=== PATIENT | male | born 1955 | race Caucasian/White ===

== ENCOUNTER → 2017-09-01 | Outpatient (CLI) | payer OTHER, MEDICAID | LOC: FIMAGING 07:44 | PROVIDERS: ATTEND Orthopaedic Surgery | DX: M51.36 Other intervertebral disc degeneration, lumbar region (principal); M51.37 Other intervertebral disc degeneration, lumbosacral region; M46.97 Unspecified inflammatory spondylopathy, lumbosacral region; M46.96 Unspecified inflammatory spondylopathy, lumbar region; M48.07 Spinal stenosis, lumbosacral region; M48.062 Spinal stenosis, lumbar region with neurogenic claudication ==

== ENCOUNTER 2018-06-14 11:38 | Inpatient (IN) | payer MEDICAID, OTHER ==
--- NOTE | 2018-06-14 12:02 | EDPHY ---
H & P Stated Complaint: cp hx afib and pe Time Seen by Provider: 06/14/18 11:55 HPI/ROS: CHIEF COMPLAINT: Chest pain HISTORY OF PRESENT ILLNESS: 62-year-old male with recurrent pulmonary embolism and atrial fibrillation presents with left-sided chest pain. Onset of sharp and stabbing left chest pain yesterday. The pain is moderate to severe and increases with deep inspiration, movement and talking. Associated with a 3-4 day history of a moist cough. Similar to prior episodes of pulmonary embolism. Currently on Xarelto. No shortness of breath or fever. REVIEW OF SYSTEMS: complete 10 point ROS reviewed and is negative except for the noted elements in the HPI - Personal History Current Tetanus Diphtheria and Acellular Pertussis (TDAP): Yes Tetanus Vaccine Date: last 2 years - Medical/Surgical History Hx Asthma: No Hx Chronic Respiratory Disease: Yes Hx Diabetes: No Hx Cardiac Disease: Yes Hx Renal Disease: No Hx Cirrhosis: No Hx Alcoholism: Yes Hx HIV/AIDS: No Hx Splenectomy or Spleen Trauma: No Other PMH: pmh- Alcoholism- sober since 01/2015, 4 PE, Antithrombin III deficiency, COPD, AFib, multiple falls. Surgical Hx: Ortho shoulder, compartment syndrome right leg, torn tendon on left foot, right knee hematoma r/ t fall, appendectomy, cholesytectomy. - Social History Smoking Status: Current every day smoker Alcohol Use: Sober Drug Use: None - Physical Exam Exam: General Appearance: Alert, pleasant, nontoxic-appearing Eyes: Pupils equal and round, no conjunctival pallor or injection ENT, Mouth: Mucous membranes moist Neck: Normal inspection Respiratory: Diffuse expiratory wheezing Cardiovascular: Regular tachycardia Gastrointestinal: Abdomen is soft and nontender Neurological: A&O, nonfocal exam Skin: Warm and dry, no rash Extremities: Nontender, bilateral pedal edema Psychiatric: Mood and affect normal Constitutional: Initial Vital Signs Temperature (C) 37.1 C 06/14/18 11:42 Heart Rate 115 H 06/14/18 11:42 Respiratory Rate 20 06/14/18 11:42 Blood Pressure 144/78 H 06/14/18 11:42 O2 Sat (%) 92 06/14/18 11:42 O2 Delivery Mode Nasal Cannula O2 (L/minute) 2 Allergies/Adverse Reactions: METAL Allergy (Intermediate, Uncoded 06/14/18 11:40) Home Medications: Medication Instructions Recorded Albuterol [Proventil Inhaler HFA 1 - 2 puffs IH Q4H PRN 06/14/18 (*)] C,E,Zinc,Copper 11/Gpetz7r/Lut 1 each PO DAILY 06/14/18 [Ocuvite Adult 50 Plus Softgel] Gabapentin [Neurontin 300 MG (*)] 900 mg PO TID 06/14/18 Ipratropium/Albuterol [Combivent 1 inh IH QID 06/14/18 Respimat Inhal [place](*)] Multivitamins [Multivitamin (*)] 1 each PO DAILY 06/14/18 Rivaroxaban [Xarelto] 20 mg PO DAILY 06/14/18 Medical Decision Making - Diagnostics EKG Interpretation: EKG interpreted by me reveals sinus tachycardia, rate 101, inferior Q-waves, consistent with prior inferior infarct. Imaging Results: Imaging Impressions Chest X-Ray 06/14/18 11:59 Impression: Nothing acute identified. Chest/Thorax CTA 06/14/18 12:08 Impression: 1. Bilateral pulmonary emboli, including emboli involving the distal left main pulmonary artery, with equivocal evidence of right heart strain. 2. Left upper lobe opacity suggesting infarct. 3. Additional findings as above. Findings discussed with Mulu Castellanos on 06/14/2018 at 1430 hours. Imaging: Discussed imaging studies w/ manager call center Radiologist, I viewed and interpreted images myself ED Course/Re-evaluation: This patient presents with left-sided pleuritic chest pain, history of coagulopathy, now on Xarelto. Patient is fairly certain that this is a pulmonary embolism. Clnical likelihood is high, given h/o recurrent PE, tachycardia and typical cp. CT pulmonary angiogram ordered. He also has bronchospasm secondary to COPD. A DuoNeb and Solu-Medrol 125 mg IV given. Morphine 4 mg IV given for pain control. Feels better after duoneb, lungs CTA. Pain lessened and pt comfortable after IV Morphine. CT scan results discussed with the patient. Extensive pulmonary embolism present. Remains clinically stable with a normal blood pressure. No indication for TPA. Heparin per weight based protocol initiated. The hospitalist service was consulted for admission. Differential Diagnosis: Differential diagnosis includes though it is not limited to pneumonia, pneumothorax, pulmonary embolism, aortic dissection, pericarditis, acute coronary syndrome. - Data Points Laboratory Results: Laboratory Results 06/14/18 11:56 06/14/18 11:56 06/14/18 06/14/18 06/14/18 11:59 11:56 11:56 WBC RBC Hgb Hct MCV MCH MCHC RDW Plt Count MPV Neut % (Auto) Lymph % (Auto) [place] % (Auto) Eos % (Auto) Baso % (Auto) Nucleat RBC Rel Count Absolute Neuts (auto) Absolute Lymphs (auto) Absolute Monos (auto) Absolute Eos (auto) Absolute Basos (auto) Absolute Nucleated RBC Immature Gran % Immature Gran # D-Dimer 3.28 ug/mLFEU H ug/mLFEU (0.00-0.50) Sodium 140 mEq/L mEq/L (135-145) Potassium 3.8 mEq/L mEq/L (3.3-5.0) Chloride 99 mEq/L mEq/L (97-110) Carbon Dioxide 32 mEq/l H mEq/l (22-31) Anion Gap 9 mEq/L mEq/L (6-14) BUN 12 mg/dL mg/dL (7-23) Creatinine 0.9 mg/dL mg/dL (0.7-1.3) Estimated GFR > 60 Glucose 88 mg/dL mg/dL (70-100) Calcium 9.5 mg/dL mg/dL (8.5-10.4) POC Troponin I 0.00 ng/mL ng/mL (0.00-0.08) NT-Pro-B Natriuret Pep 109 pg/mL pg/mL (0-125) 06/14/18 11:56 WBC 6.45 10^3/uL 10^3/uL (3.80-9.50) RBC 4.56 10^6/uL 10^6/uL (4.40-6.38) Hgb 15.6 g/dL g/dL (13.7-17.5) Hct 47.3 % % (40.0-51.0) MCV 103.7 fL H fL (81.5-99.8) MCH 34.2 pg H pg (27.9-34.1) MCHC 33.0 g/dL g/dL (32.4-36.7) RDW 14.8 % % (11.5-15.2) Plt Count 215 10^3/uL 10^3/uL (150-400) MPV 9.1 fL fL (8.7-11.7) Neut % (Auto) 69.6 % % (39.3-74.2) Lymph % (Auto) 15.5 % % (15.0-45.0) [place] % (Auto) 13.3 % H % (4.5-13.0) Eos % (Auto) 0.2 % L % (0.6-7.6) Baso % (Auto) 1.1 % % (0.3-1.7) Nucleat RBC Rel Count 0.0 % % (0.0-0.2) Absolute Neuts (auto) 4.49 10^3/uL 10^3/uL (1.70-6.50) Absolute Lymphs (auto) 1.00 10^3/uL 10^3/uL (1.00-3.00) Absolute Monos (auto) 0.86 10^3/uL H 10^3/uL (0.30-0.80) Absolute Eos (auto) 0.01 10^3/uL L 10^3/uL (0.03-0.40) Absolute Basos (auto) 0.07 10^3/uL 10^3/uL (0.02-0.10) Absolute Nucleated RBC 0.00 10^3/uL 10^3/uL (0-0.01) Immature Gran % 0.3 % % (0.0-1.1) Immature Gran # 0.02 10^3/uL 10^3/uL (0.00-0.10) D-Dimer Sodium Potassium Chloride Carbon Dioxide Anion Gap BUN Creatinine Estimated GFR Glucose Calcium POC Troponin I NT-Pro-B Natriuret Pep Medications Given: Hydrocodone Bitart/Acetaminophen ([place] 5/325) 1 - 2 tab PO Q4HRS PRN PRN Reason: Pain, Moderate Able to Take PO Stop: 06/24/18 15:32 Last Admin: 06/14/18 17:49 Dose: 1 tab Albuterol/Ipratropium (Combivent Respimat Inhal [place]) 1 inh IH QID [facility] Stop: 12/11/18 15:59 Last Admin: 06/14/18 20:51 Dose: 1 inh Gabapentin (Neurontin) 900 mg PO TID [facility] Stop: 12/11/18 15:59 Last Admin: 06/14/18 17:30 Dose: 900 mg Discontinued Medications Albuterol/Ipratropium (Duoneb) 3 ml IH EDNOW ONE Stop: 06/14/18 12:16 Last Admin: 06/14/18 12:19 Dose: 3 ml Heparin Sodium (Porcine) (Heparin Injection) 0 unit IVP EDNOW ONE Stop: 06/14/18 14:33 Last Admin: 06/14/18 14:51 Dose: 8,300 units Heparin Sodium (Porcine) (Heparin 50 Units/Ml (Premix)) 500 mls @ 0 mls/hr IV EDNOW ONE; Per Protocol PRN Reason: Protocol Stop: 06/14/18 14:33 Last Admin: 06/14/18 14:53 Dose: 500 mls Methylprednisolone Sodium Succinate (Solu-Medrol) 125 mg IVP EDNOW ONE Stop: 06/14/18 12:16 Last Admin: 06/14/18 12:20 Dose: 125 mg Morphine Sulfate (Morphine) 4 mg IVP EDNOW ONE Stop: 06/14/18 13:54 Last Admin: 06/14/18 13:54 Dose: 4 mg Point of Care Test Results: Chemistry 06/14/18 11:59 POC Troponin I 0.00 ng/mL ng/mL (0.00-0.08) Departure - Departure Disposition: [facility] Inpatient Acute Clinical Impression: Pulmonary embolism Qualifiers: Pulmonary embolism type: other Chronicity: acute Acute cor pulmonale presence: without acute cor pulmonale Qualified Code(s): I26.99 - Other pulmonary embolism without acute cor pulmonale Condition: Serious
[2018-06-14 12:04] LABS: PLATELET COUNT 215 10^3/uL (150-400)
[2018-06-14] MEDS ORDERED: methylPREDNISolone SOD SUCC 125 MG/2 ML VIAL IVP ONE (12:15)
[2018-06-14] MEDS ORDERED: IPRATROPIUM/ALBUTEROL 3 ML DEYVIAL IH ONE (12:15)
[2018-06-14] MEDS ORDERED: IOPAMIDOL (ISOVUE 370) 100 ML BTL IV ONE (13:06)
[2018-06-14] MEDS ORDERED: HEPARIN 10,000 UNIT/10 ML MDV (1,000 UNIT/ML) IVP ONE (14:32)
[2018-06-14] MEDS ORDERED: HEPARIN/DEXTROSE 500 ML IV ONE (14:32)
--- NOTE | 2018-06-14 15:14 | CPEKG ---
Test Reason : OPEN Blood Pressure : / mmHG Vent. Rate : 101 BPM Atrial Rate : 101 BPM P-R Int : 177 ms QRS Dur : 068 ms QT Int : 333 ms P-R-T Axes : 027 -08 020 degrees QTc Int : 432 ms Inferior infarct, old Confirmed by Mulu Castellanos ([id number]) on 06/14/2018 3:14:08 PM Referred By: Confirmed By:Mulu Castellanos
[2018-06-14] MEDS ORDERED: HYDROmorphONE/DILAUDID 1 MG/ML INJ IVP PRN (15:33)
[2018-06-14] MEDS ORDERED: ONDANSETRON DISINTEGRATING 4 MG TAB PO PRN (15:33)
[2018-06-14] MEDS ORDERED: ONDANSETRON 4 MG/2 ML VIAL IVP PRN (15:33)
[2018-06-14] MEDS ORDERED: HEPARIN 10,000 UNIT/10 ML MDV (1,000 UNIT/ML) IVP PRN (15:33)
[2018-06-14] MEDS ORDERED: ALBUTEROL 3 ML DEYVIAL IH PRN (15:33)
[2018-06-14] MEDS ORDERED: ACETAMINOPHEN 325 MG TAB PO PRN (15:33)
[2018-06-14] MEDS ORDERED: LORazepam 0.5 MG TAB PO PRN (15:33)
[2018-06-14] MEDS ORDERED: LORazepam 2 MG/ML INJ IVP PRN (15:33)
[2018-06-14] MEDS ORDERED: PROMETHAZINE HCL 25 MG/ML INJ IVP PRN (15:33)
[2018-06-14] MEDS: IPRATROPIUM/ALBUTEROL 4GM MDI IH SCH ×2 (16:37→20:51)
[2018-06-14 16:46] LABS: PLATELET COUNT 191 10^3/uL (150-400)
--- NOTE | 2018-06-14 16:56 | PDGENHP ---
History and Physical - Chief Complaint chest pain - History of Present Illness 62 yo M with hx of antithrombin 3 deficiency and recurrent DVT/PE and etoh abuse and withdrawal as well as hx of recurrent DVT/PE presenting with chest pain that for him is very similar to prior sxs he has had with PE in the past. He has fairly recently been switched from warfarin to xarelto. He has had clots in the past on both coumadin and xarelto. He denies any non compliance with his medications recently. He states he has cut down on his drinking but states he was drinking a bit more with this pain to help with the pain. He denies having any withdrawal in the recent past and states that he does not drink every day but is somewhat reluctant to answer specific questions about his drinking. History Information - Allergies/Home Medication List Allergies/Adverse Reactions: METAL Allergy (Intermediate, Uncoded 06/14/18 11:40) Home Medications: Albuterol [Proventil Inhaler HFA (*)] 1 - 2 puffs IH Q4H PRN 06/14/18 [Last Taken Unknown] C,E,Zinc,Copper 11/Lmwon4k/Lut [Ocuvite Adult 50 Plus Softgel] 1 each PO DAILY 06/14/18 [Last Taken 06/13/18] Gabapentin [Neurontin 300 MG (*)] 900 mg PO TID 06/14/18 [Last Taken 06/14/18 09 :00] Ipratropium/Albuterol [Combivent Respimat Inhal [place](*)] 1 inh IH QID 06/14/18 [Last Taken 06/13/18] Multivitamins [Multivitamin (*)] 1 each PO DAILY 06/14/18 [Last Taken 06/13/18] Rivaroxaban [Xarelto] 20 mg PO DAILY 06/14/18 [Last Taken 06/13/18] I have personally reviewed and updated: family history, medical history, social history, surgical history - Past Medical History atrial fibrillation, DVT, pulmonary embolism Additional medical history: AT3 deficiency. etoh use disorder with withdrawal, ataxia, Wernickes - Surgical History Reports: appendectomy, cholecystectomy Additional surgical history: fasciotomy 2/2 compartment syndrome - Family History Positive for: non-pertinent - Social History Smoking Status: Current every day smoker Alcohol Use: Occasionally (per patient he only drinks sometimes now, admits to several drinks yesterday) Drug Use: None, Marijuana Review of Systems Review of Systems: ROS: 10pt was reviewed & negative except for what was stated in HPI & below Physical Exam Physical Exam: Temp Pulse Resp BP Pulse Ox 36.6 C 84 16 154/89 H 94 06/14/18 15:22 06/14/18 15:22 06/14/18 15:22 06/14/18 15:22 06/14/18 15:22 O2 (L/minute) 2 Constitutional: no apparent distress, appears nourished Eyes: PERRL, anicteric sclera Ears, Nose, Mouth, Throat: moist mucous membranes, poor dentition Cardiovascular: regular rate and rhythym, no murmur, rub, or gallop, No edema Respiratory: no respiratory distress, no rales or rhonchi, clear to auscultation Gastrointestinal: normoactive bowel sounds, soft, non-tender abdomen Genitourinary: no bladder tenderness Skin: warm, normal color Musculoskeletal: full muscle strength, no muscle tenderness Neurologic: AAOx3 Psychiatric: interacting appropriately, not anxious, not encephalopathic Lab Data & Imaging Review 06/14/18 11:56 06/14/18 11:56 WBC 6.45 10^3/uL (3.80-9.50) 06/14/18 11:56 RBC 4.56 10^6/uL (4.40-6.38) 06/14/18 11:56 Hgb 15.6 g/dL (13.7-17.5) 06/14/18 11:56 Hct 47.3 % (40.0-51.0) 06/14/18 11:56 MCV 103.7 fL (81.5-99.8) H 06/14/18 11:56 MCH 34.2 pg (27.9-34.1) H 06/14/18 11:56 MCHC 33.0 g/dL (32.4-36.7) 06/14/18 11:56 RDW 14.8 % (11.5-15.2) 06/14/18 11:56 Plt Count 215 10^3/uL (150-400) 06/14/18 11:56 MPV 9.1 fL (8.7-11.7) 06/14/18 11:56 Neut % (Auto) 69.6 % (39.3-74.2) 06/14/18 11:56 Lymph % (Auto) 15.5 % (15.0-45.0) 06/14/18 11:56 [place] % (Auto) 13.3 % (4.5-13.0) H 06/14/18 11:56 Eos % (Auto) 0.2 % (0.6-7.6) L 06/14/18 11:56 Baso % (Auto) 1.1 % (0.3-1.7) 06/14/18 11:56 Nucleat RBC Rel Count 0.0 % (0.0-0.2) 06/14/18 11:56 Absolute Neuts (auto) 4.49 10^3/uL (1.70-6.50) 06/14/18 11:56 Absolute Lymphs (auto) 1.00 10^3/uL (1.00-3.00) 06/14/18 11:56 Absolute Monos (auto) 0.86 10^3/uL (0.30-0.80) H 06/14/18 11:56 Absolute Eos (auto) 0.01 10^3/uL (0.03-0.40) L 06/14/18 11:56 Absolute Basos (auto) 0.07 10^3/uL (0.02-0.10) 06/14/18 11:56 Absolute Nucleated RBC 0.00 10^3/uL (0-0.01) 06/14/18 11:56 Immature Gran % 0.3 % (0.0-1.1) 06/14/18 11:56 Immature Gran # 0.02 10^3/uL (0.00-0.10) 06/14/18 11:56 D-Dimer 3.28 ug/mLFEU (0.00-0.50) H 06/14/18 11:56 Sodium 140 mEq/L (135-145) 06/14/18 11:56 Potassium 3.8 mEq/L (3.3-5.0) 06/14/18 11:56 Chloride 99 mEq/L (97-110) 06/14/18 11:56 Carbon Dioxide 32 mEq/l (22-31) H 06/14/18 11:56 Anion Gap 9 mEq/L (6-14) 06/14/18 11:56 BUN 12 mg/dL (7-23) 06/14/18 11:56 Creatinine 0.9 mg/dL (0.7-1.3) 06/14/18 11:56 Estimated GFR > 60 06/14/18 11:56 Glucose 88 mg/dL (70-100) 06/14/18 11:56 Calcium 9.5 mg/dL (8.5-10.4) 06/14/18 11:56 POC Troponin I 0.00 ng/mL (0.00-0.08) 06/14/18 11:59 NT-Pro-B Natriuret Pep 109 pg/mL (0-125) 06/14/18 11:56 Visualized and Interpreted Chest x-ray results: Yes Chest X-Ray results: no infiltrate Visualized and Interpreted imaging results: Yes Interpretation: CTA chest: bilateral PE, left main PA PE, ? right heart strain Visualized and Interpreted EKG results: Yes EKG additional interpertation: ST Assessment & Plan Assessment: Pulmonary embolism (Acute) 62 yo M with hx of AT3 deficiency with recurrent VTE, hx of etoh abuse and related ataxia/neuropathy presenting with recurrent PE # PE: recurrent hx of VTE with underlying AT3 deficiency, now with recurrent PE on xarelto. Does have some findings c/w right heart strain on CTA so will get f/ u echo in am but overall appears stable, on RA currently and PESI score of 2. Started on heparin gtt and will transition to coumadin in am so long as remains stable overnight. Patient has been seen by [facility] in the past and would recommend he f/u with them after discharge. 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 Will start mvi, thiamine, folate. no s/s of withdrawal currently # paroxysmal a fib: current in SR, monitoring on tele # IP status, will require > 48 hours for eval/mgmt of above > Patient new to my care. Old records reviewed and summarized as above. Care plan reviewed with ER doctor as above.
[2018-06-14 17:23] LABS: INR 1.58 (0.83-1.16)
[2018-06-14] MEDS: GABAPENTIN 300 MG CAP PO SCH ×2 (17:30→21:01)
[2018-06-14] MEDS: HYDROCODONE/APAP 5/325 TAB PO PRN ×2 (17:49→23:13)
[2018-06-14] MEDS: oxyCODONE IR 5 MG TAB PO PRN (21:07)
[2018-06-15] MEDS: oxyCODONE IR 5 MG TAB PO PRN ×3 (05:07→20:59)
[2018-06-15] MEDS: IPRATROPIUM/ALBUTEROL 4GM MDI IH SCH ×4 (05:18→21:06)
[2018-06-15] MEDS: HEPARIN/DEXTROSE 500 ML IV SCH ×2 (05:49→23:49)
--- NOTE | 2018-06-15 08:30 | ASMTLACE ---
NEELAM Acuity / Level of Answers: Yes Care: Did the patient have an inpatient admission? Comorbidities - select Answers: Chronic pulmonary disease all that apply History of falls Opioid dependence / Chronic pain Other Notes: Recurrent DVT/PE; AFib # of Emergency department Answers: 1-2 visits in the last 6 months Social determinants Answers: History of substance abuse (ETOH, street drugs, prescription drugs, etc.) Score: 17 Date Signed: 06/15/2018 08:30 AM Electronically Signed By:Aislinn Nieto
[2018-06-15] MEDS: GABAPENTIN 300 MG CAP PO SCH ×3 (08:40→20:58)
[2018-06-15] MEDS: PRESERVISION AREDS2 FORMULA EYE VIT 1 EACH PO SCH (08:44)
[2018-06-15] MEDS: FOLIC ACID 1 MG TAB PO SCH (08:44)
[2018-06-15] MEDS: THIAMINE HCL 100 MG TAB PO SCH (08:44)
[2018-06-15] MEDS: MULTIVITAMINS W-MINERALS 1 EACH TAB PO SCH (08:45)
[2018-06-15] MEDS ORDERED: MULTIVITAMINS 1 EACH TAB PO SCH (09:00)
[2018-06-15 09:01] LABS: PLATELET COUNT 200 10^3/uL (150-400)
--- NOTE | 2018-06-15 09:48 | ASMTCASEMG ---
Living Arrangements What is your living Answers: Alone arrangement? Who do you live with? Type Of Residence What kind of residence do Answers: Apartment you live in? Discharge Plan Comments Coordination Status Comments Notes: Patient is a 62yo single male with a hx of AT3 deficiency with recurrent VTE, hx of ETOH abuse and related ataxia/neuropathy presenting with acute pulmonary embolism. OT/PT/cardiac rehab ordered. Patient is well known to [facility] and has historically chosen to continue drinking. D/C plan TBD. CM will follow. Date Signed: 06/15/2018 09:47 AM Electronically Signed By:Taylor Suazo LCSW
--- NOTE | 2018-06-15 09:53 | PDMN ---
Medical Necessity Medical necessity: [facility] [place] PE: 62 yo w/ acute PE, meets IP criteria due to recurrent hx of VTE with underlying AT3 deficiency, now with recurrent PE on xarelto. Does have some findings c/w right heart strain on CTA. Etoh use disorder, severe: with multiple hospitalizations in the past for same and previous issues with his INR going high when drinking. Afib, monitor on tele. IP status, will require > 48 hours for eval/mgmt of above
--- NOTE | 2018-06-15 12:20 | ECHO ---
[email or web address] [address] Main: [phone] Fax: Transthoracic Echocardiogram Name: TRENT VAZQUEZ MR#: [id number] Study Date: 06/15/2018 Study Time: 10:35 AM Date of : 1955 Age: 62 year(s) Height: 182.9 cm (72 in.) Weight: 103.42 kg (228 lb.) BSA: 2.25 m2 Gender: Male Examination: Echo Indication: PE/DVT, COPD, ETOH, Eval for Rt heart strain Image Quality: Contrast: Requested by: Malcolm Villatoro BP: 105 mmHg/65 mmHg Heart Rate: Rhythm: Normal sinus rhythm Indication: PE/DVT, COPD, ETOH, Eval for Rt heart strain Procedure Staff Cloth Wire Weaver: Manuelito Gallegos RDCS Reading Physician: Jason Powell MD Requesting Provider: Conclusions: Normal size left ventricle. Normal global systolic LV function. Grade 1 diastolic dysfunction (abnormal relaxation). Moderately dilated right ventricle. Measurements: Chambers Valvular Assessment AV/MV Valvular Assessment TV/PV Normal Normal Normal Name Value Range Name Value Range Name Value Range Ao Joanne (MM): 2.8 cm (2.2 cm-3.7 AV Vmax: 1.05 m/s (1 m/s-1.7 TR Vmax: 2.50 mm/s ( - ) cm) m/s) TR PGmax: 25 mmHg ( - ) IVSd (2D): 0.8 cm (0.6 cm-1.1 AV maxP mmHg ( - ) syst. PAP: 30 mmHg ( - ) cm) LVOT Vmax: 0.60 m/s (0.7 m/s-1.1 PV Vmax: 1.02 m/s (0.6 m/s-0.9 LVDd (2D): 3.8 cm (4.2 cm-5.9 m/s) m/s) cm) MV E Vmax: 0.53 m/s ( - ) PV PGmax: 4 mmHg ( - ) LVDs (2D): 2.2 cm (2.1 cm-4 MV A Vmax: 0.61 m/s ( - ) cm) MV E/A: 0.87 ( - ) LVPWd (2D): 1.0 cm (0.6 cm-1 cm) LVEF (2D): 74 (>=54 %) RVDd(2D): 4.9 cm (1.9 cm-3.8 cmmm) Continued Measurements: Chambers Valvular Assessment AV/MV Valvular Assessment TV/PV Name Value Name Value Name Value LADs Lon.5 cm MV E' Septal: 0.05 m/s CVP (est.): 5 mmHg LA Area: 20.9 cm2 MV E/E' Septal: 10.90 Patient: TRENT VAZQUEZ Study Date: 06/15/2018 Page 1 of 2 10:35 AM LA Volume: 49 ml MV E/E' Lateral: 11.20 LA Volume Index: 21.8 ml/m2 Findings: Left Ventricle: Normal size left ventricle. No LV hypertrophy. Normal global systolic LV function. EF is 74 %. Grade 1 diastolic dysfunction (abnormal relaxation). Right Ventricle: Moderately dilated right ventricle. Moderately reduced RV function. Flattened interventricular septum consistent with right ventricular pressure and/or volume overload free wall. Left Atrium: The left atrium is normal in size. Right Atrium: The right atrium is borderline dilated. Mitral Valve: There is mild thickening of the mitral valve leaflets. Mild mitral annular calcification. There is no mitral valve regurgitation. Aortic Valve: The aortic valve is tri-leaflet. Aortic sclerosis is present. There is no aortic valve regurgitation. No aortic valve stenosis is present. Tricuspid Valve: The tricuspid valve appears normal. Trivial tricuspid valve regurgitation. The pulmonary artery pressure is normal. Right ventricular systolic pressure measures 30mmHg. Pulmonic Valve: The pulmonic valve is normal in appearance and function. Aorta: The aorta is normal. Pericardium: No pericardial effusion. (No Signature Object) Patient: TRENT VZAQUEZ Study Date: 06/15/2018 Page 2 of 2 10:35 AM [id number]
--- NOTE | 2018-06-15 12:35 | HOSPPROG ---
Hospitalist Progress Note Assessment/Plan: 62 yo M with hx of AT3 deficiency with recurrent VTE, hx of etoh abuse and related ataxia/neuropathy presenting with recurrent PE. First encounter, chart reviewed. D/W Dr Rodriguez. 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 no s/s of withdrawal currently # paroxysmal a fib: current in SR, monitoring on tele # IP status, will require > 48 hours for eval/mgmt of above > Patient new to my care. Old records reviewed and summarized as above. Care plan reviewed with ER doctor as above. Subjective: Feeling ok. Still having some chest discomfort. No other issues. Objective: Vital Signs Temp Pulse Resp BP Pulse Ox 36.6 C 68 16 110/66 94 06/15/18 11:27 06/15/18 11:32 06/15/18 11:32 06/15/18 11:27 06/15/18 11:32 Laboratory Results 06/15/18 08:45 06/15/18 08:45 06/14/18 06/15/18 06/16/18 05:59 05:59 05:59 Intake Total 200 Balance 200 PT 19.0 SEC (12.0-15.0) H 06/14/18 16:35 INR 1.58 (0.83-1.16) H 06/14/18 16:35 - Physical Exam Constitutional: appears nourished, not in pain, chronically ill appearing Eyes: PERRL, anicteric sclera, EOMI Ears, Nose, Mouth, Throat: moist mucous membranes, hearing normal, ears appear normal Cardiovascular: regular rate and rhythym, No JVD, No edema Respiratory: no respiratory distress, no rales or rhonchi, reduced air movement Gastrointestinal: normoactive bowel sounds, No tenderness, No ascites Skin: warm, normal color, No mottled Musculoskeletal: no joint effusions, abnormal gait, generalized weakness Neurologic: AAOx3 Psychiatric: interacting appropriately, not anxious, not encephalopathic, poor insight ICD10 Worksheet Patient Problems: Problems Problem Status Onset Depression - Depressive disorder Active Alcohol dependence Active Recurrent pulmonary embolism Chronic Acute respiratory failure Acute COPD (chronic obstructive pulmonary disease) Acute Cor pulmonale, chronic Acute Severe major depression without psychotic features Acute Gastrointestinal bleeding, upper Acute Anticoagulant-induced bleeding Acute Antithrombin III deficiency Acute Alcohol intoxication Acute Coagulopathy Acute Pulmonary embolism Acute
[2018-06-15] MEDS ORDERED: CALCIUM CARBONATE 500 MG CHEWABLE TAB PO PRN (23:23)
[2018-06-15] MEDS: GUAIFENESIN/DM 10 ML UDCUP PO PRN (23:49)
[2018-06-16] MEDS: oxyCODONE IR 5 MG TAB PO PRN ×3 (04:28→23:21)
[2018-06-16] MEDS: IPRATROPIUM/ALBUTEROL 4GM MDI IH SCH ×4 (05:07→21:25)
[2018-06-16] MEDS: THIAMINE HCL 100 MG TAB PO SCH (09:33)
[2018-06-16] MEDS: FOLIC ACID 1 MG TAB PO SCH (09:33)
[2018-06-16] MEDS: GABAPENTIN 300 MG CAP PO SCH ×3 (09:33→23:21)
[2018-06-16] MEDS: MULTIVITAMINS W-MINERALS 1 EACH TAB PO SCH (09:33)
[2018-06-16] MEDS: PRESERVISION AREDS2 FORMULA EYE VIT 1 EACH PO SCH (09:33)
[2018-06-16] MEDS: GUAIFENESIN/DM 10 ML UDCUP PO PRN ×2 (09:34→15:50)
--- NOTE | 2018-06-16 12:21 | HOSPPROG ---
Hospitalist Progress Note Assessment/Plan: 62 yo M with hx of AT3 deficiency with recurrent VTE, hx of etoh abuse and related ataxia/neuropathy presenting with recurrent PE. # PE: recurrent hx of VTE with underlying AT3 deficiency now with recurrent PE on xarelto pt states he did not miss any doses some findings c/w right heart strain on CTA heparin gtt echo mild strain on RA currently PESI score of 2 Patient has been seen by [facility] in the past await heme consult # AT3 deficiency: as above, with recurrent PE/DVT # etoh use disorder, severe: with multiple hospitalizations in the past for same and previous issues his INR going high when drinking he does state that he has cut way down mvi, thiamine, folate. no s/s of withdrawal currently # paroxysmal a fib: current in SR, monitoring on tele # IP status, will require > 48 hours for eval/mgmt of above cont supportive care await med recs form heme Subjective: Up walking. A little chest discomfort. No other issues. Feels good. Objective: Vital Signs Temp Pulse Resp BP Pulse Ox 36.8 C 75 20 117/62 83 L 06/16/18 11:37 06/16/18 11:53 06/16/18 11:37 06/16/18 11:37 06/16/18 11:53 Laboratory Results 06/16/18 04:33 06/15/18 08:45 06/15/18 06/16/18 06/17/18 05:59 05:59 05:59 Intake Total 200 2650 Output Total 1550 500 Balance 200 1100 -500 PT 19.0 SEC (12.0-15.0) H 06/14/18 16:35 INR 1.58 (0.83-1.16) H 06/14/18 16:35 - Physical Exam Constitutional: appears nourished, chronically ill appearing Eyes: PERRL, anicteric sclera Ears, Nose, Mouth, Throat: moist mucous membranes, hearing normal Cardiovascular: No JVD, No edema Respiratory: no respiratory distress, reduced air movement Gastrointestinal: No tenderness, No ascites Skin: warm, normal color Musculoskeletal: no joint effusions, generalized weakness Neurologic: AAOx3 Psychiatric: interacting appropriately, not anxious, not encephalopathic ICD10 Worksheet Patient Problems: Problems Problem Status Onset Depression - Depressive disorder Active Alcohol dependence Active Recurrent pulmonary embolism Chronic Acute respiratory failure Acute COPD (chronic obstructive pulmonary disease) Acute Cor pulmonale, chronic Acute Severe major depression without psychotic features Acute Gastrointestinal bleeding, upper Acute Anticoagulant-induced bleeding Acute Antithrombin III deficiency Acute Alcohol intoxication Acute Coagulopathy Acute Pulmonary embolism Acute
--- NOTE | 2018-06-16 14:04 | ASMTCMCOM ---
CM Note CM Note Notes: CM spoke to pts nurse Jane and Yudith Alicea NP regarding POC. CM met w/ pt for dispo planning. PT is recommending HC. OT is recommending SNF. Pt is not interested in HC at this time. Pt reports that he has a swimming pool and a gym at his snf facility. CM available for changes. Plan: Independent Date Signed: 06/16/2018 02:04 PM Electronically Signed By:ALIDA Skaggs
[2018-06-16] MEDS: HEPARIN/DEXTROSE 500 ML IV SCH (14:46)
--- NOTE | 2018-06-16 15:59 | GCON ---
HEMATOLOGY CONSULTATION REFERRING PHYSICIAN: Malcolm Villatoro MD REASON FOR CONSULTATION: Recurrent PE. HISTORY OF PRESENT ILLNESS: The patient is a 62-year-old man who has a history of recurrent VTE for several years. He has an unclear diagnosis of possible antithrombin deficiency, although I do not have documentation of that. He has been on Coumadin in the [facility] operator. He reports changing to Xarelto in November under the direction of a physician at [facility]. He reports he has not missed any doses. He does, however, admit that he often remembers to take the dose late, often more than half a day late. He presented with chest pain, 06/14/2018, and CT angiogram demonstrated bilateral pulmonary emboli including a distal left main pulmonary artery embolus and left upper lobe opacity suggestive of infarct. He was started on heparin. Echocardiogram demonstrated a moderately dilated RV with moderately reduced RV function. He reports continued chest pain, but it is improved. He had some issues with supratherapeutic INRs in the past. PAST MEDICAL HISTORY: 1. Atrial fibrillation. 2. History of DVT, PE. I do not see clear documentation of prior events. He has seen Dr. Almendarez in the past. 3. Alcohol use with history of withdrawal. PAST SURGICAL HISTORY: Appendectomy, cholecystectomy, fasciotomy due to compartment syndrome. FAMILY HISTORY: Noncontributory. SOCIAL HISTORY: Amount of alcohol intake is unclear. He is a current every day smoker. REVIEW OF SYSTEMS: CARDIOVASCULAR: No new lower extremity edema. RESPIRATORY : Per HPI. HEMATOLOGIC: Per HPI. A 10-point review of system was performed and negative with exception of those noted above. PHYSICAL EXAM: GENERAL: Alert, oriented, no acute distress. He is sitting up eating lunch. LUNGS: Breathing comfortably, speaking full sentences without difficulty. Clear to auscultation. CARDIOVASCULAR: Regular rate and rhythm. Trace bilateral pretibial edema. ABDOMEN: Obese, nontender. NEUROLOGIC: Grossly nonfocal. LABORATORY DATA: Yesterday, WBC 7.9, hemoglobin 14.8, MCV 103.2, platelets 200, 000. Normal CMP. No LFTs. Heparin level this morning 0.5, therapeutic. RADIOLOGIC DATA: Per HPI. IMPRESSION: 1. Recurrent venous thromboembolism: I suspect his recurrent event is related to his compliance with timely dosing of Xarelto. Late doses have a significant effect on drug levels given the short half-life of Xarelto. Given that, it is likely more appropriate for him to go back to Coumadin which he has previously had monitored at the [facility] at [facility]. He has had issues with supratherapeutic levels so will need close monitoring. 2. Question antithrombin deficiency: It is not clear to me how this diagnosis was suspected. I do not see prior levels performed. Currently, a level would not be helpful given administration of heparin. In addition, it is not clear how that diagnosis would change his management given recurrent venous thromboembolism and indication for indefinite anticoagulation. 3. Continue heparin versus change to therapeutic Lovenox (1 mg/kg b.i.d.). Would favor reinitiation of Coumadin. Recommend he follow up with Dr. Almendarez as an outpatient. /[id number]/MODL MTDD
[2018-06-17] MEDS: IPRATROPIUM/ALBUTEROL 4GM MDI IH SCH ×4 (05:54→21:55)
[2018-06-17] MEDS: HEPARIN/DEXTROSE 500 ML IV SCH (07:20)
[2018-06-17] MEDS: MULTIVITAMINS W-MINERALS 1 EACH TAB PO SCH (08:09)
[2018-06-17] MEDS: PRESERVISION AREDS2 FORMULA EYE VIT 1 EACH PO SCH (08:09)
[2018-06-17] MEDS: GABAPENTIN 300 MG CAP PO SCH ×3 (08:09→22:04)
[2018-06-17] MEDS: FOLIC ACID 1 MG TAB PO SCH (08:09)
[2018-06-17] MEDS: THIAMINE HCL 100 MG TAB PO SCH (08:09)
--- NOTE | 2018-06-17 09:07 | HOSPPROG ---
Hospitalist Progress Note Assessment/Plan: 62 yo M with hx of AT3 deficiency with recurrent VTE, hx of etoh abuse and related ataxia/neuropathy presenting with recurrent PE. Today is my first encounter w the patient, chart reviewed. # recurrent PE -appreciate hematology consult-recommendation is Coumadin to monitor closely ( issue is alcohol use) - underlying AT3 deficiency -Xarelto and said he's been compliant but didn't know he needed to take it scheduled -echo c/w right heart strain on CTA - heparin gtt # AT3 deficiency: as above, with recurrent PE/DVT # etoh use disorder, severe: -multiple hospitalizations in the past for same and previous issues -INR going high when drinking -he told me today he has been cutting back - mvi, thiamine, folate. -no s/s of withdrawal currently # paroxysmal a fib: -sinus # plan: call into Dr Rahman, difficult to treat w Coumadin due to alcohol use; will discuss w her the options since she is his PCP, dc iv heparin and place on treatment dose of LMWH. Subjective: [place] said he came to the ER with CP, he did not realize he was supposed to take the OAC daily at same time. Objective: Vital Signs Temp Pulse Resp BP Pulse Ox 36.9 C 87 16 97/63 L 98 06/17/18 07:49 06/17/18 07:49 06/17/18 07:49 06/17/18 07:49 06/17/18 07:49 Laboratory Results 06/16/18 04:33 06/15/18 08:45 06/16/18 06/17/18 06/18/18 05:59 05:59 05:59 Intake Total 2650 500 Output Total 1550 1800 500 Balance 1100 -1300 -500 PT 19.0 SEC (12.0-15.0) H 06/14/18 16:35 INR 1.58 (0.83-1.16) H 06/14/18 16:35 - Physical Exam Constitutional: no apparent distress, uncomfortable Eyes: PERRL Ears, Nose, Mouth, Throat: hearing normal Cardiovascular: regular rate and rhythym Respiratory: no respiratory distress, reduced air movement Skin: warm Musculoskeletal: generalized weakness Neurologic: AAOx3 Psychiatric: interacting appropriately, not encephalopathic, thought process linear ICD10 Worksheet Patient Problems: Problems Problem Status Onset Pulmonary embolism Acute Alcohol dependence Active Depression - Depressive disorder Active Acute respiratory failure Acute Alcohol intoxication Acute Anticoagulant-induced bleeding Acute Antithrombin III deficiency Acute COPD (chronic obstructive pulmonary disease) Acute Coagulopathy Acute Cor pulmonale, chronic Acute Gastrointestinal bleeding, upper Acute Severe 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
[2018-06-17] MEDS: ENOXAPARIN 100 MG/ML SYR SC SCH ×2 (12:21→22:04)
[2018-06-17] MEDS: oxyCODONE IR 5 MG TAB PO PRN ×2 (14:51→22:05)
[2018-06-17] MEDS ORDERED: WARFARIN SODIUM 5 MG TAB PO SCH (16:00)
--- NOTE | 2018-06-17 16:14 | SOAPPROG ---
[facility] Progress Note Assessment/Plan: Assessment: discussed with Ginger Chirinos NP. Patient to be discharged on warfarin with close follow up. will sign off. Plan: 06/17/18 16:13 06/17/18 16:14 Objective: Vital Signs Temp Pulse Resp BP Pulse Ox 36.9 C 108 H 16 114/71 92 06/17/18 15:03 06/17/18 15:52 06/17/18 15:52 06/17/18 15:03 06/17/18 15:52 Laboratory Results 06/16/18 04:33 06/15/18 08:45 06/16/18 06/17/18 06/18/18 05:59 05:59 05:59 Intake Total 2650 500 Output Total 1550 1800 500 Balance 1100 -1300 -500 PT 19.0 SEC (12.0-15.0) H 06/14/18 16:35 INR 1.58 (0.83-1.16) H 06/14/18 16:35 ICD10 Worksheet Patient Problems: Problems Problem Status Onset Pulmonary embolism Acute Alcohol dependence Active Depression - Depressive disorder Active Acute respiratory failure Acute Alcohol intoxication Acute Anticoagulant-induced bleeding Acute Antithrombin III deficiency Acute COPD (chronic obstructive pulmonary disease) Acute Coagulopathy Acute Cor pulmonale, chronic Acute Gastrointestinal bleeding, upper Acute Severe 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
[2018-06-18] MEDS: IPRATROPIUM/ALBUTEROL 4GM MDI IH SCH ×2 (05:05→10:13)
[2018-06-18 05:17] LABS: INR 1.07 (0.83-1.16); PROTIME(PATIENT) 14.1 SEC (12.0-15.0)
[2018-06-18 07:58] VITALS: BP 114/57
[2018-06-18] MEDS: ENOXAPARIN 100 MG/ML SYR SC SCH (08:30)
[2018-06-18] MEDS: PRESERVISION AREDS2 FORMULA EYE VIT 1 EACH PO SCH (08:31)
[2018-06-18] MEDS: GABAPENTIN 300 MG CAP PO SCH (08:31)
[2018-06-18] MEDS: MULTIVITAMINS W-MINERALS 1 EACH TAB PO SCH (08:31)
[2018-06-18] MEDS: THIAMINE HCL 100 MG TAB PO SCH (08:31)
[2018-06-18] MEDS: FOLIC ACID 1 MG TAB PO SCH (08:31)
--- NOTE | 2018-06-18 16:05 | GDS ---
DISCHARGE DIAGNOSES: 1. Recurrent pulmonary embolus. 2. Antithrombin 3 deficiency. 3. Alcohol use disorder. 4. Paroxysmal atrial fibrillation. CONSULTATIONS: Oncology. STUDIES AND PROCEDURES DONE: 1. CT angio of the chest. 2. Echocardiogram. PHYSICAL EXAM: GENERAL: The patient is alert. VITAL SIGNS: Afebrile at 37.3. Pulse is 87, respir atory rate 16. Blood pressure is 114/57. He is saturating 91% on room air. I have seen and evaluat ed the patient on the day of discharge. HOSPITAL COURSE: The patient is a 62-year-old male who presented to the emergency room with complain ts of chest pain. He was evaluated and diagnosed with: 1. Recurrent PE. He was treated during this hospitalization with a heparin drip. He did receive a consultation from Oncology. He has been transitioned to Coumadin, as well as Lovenox with treatment in the outpatient setting. He was previously on Xarelto but obtained a pulmonary emboli while on Xar elto. 2. Antithrombin 3 deficiency. Again, this is as above. The patient has required lifelong anticoagu lation therapy. He has been on Coumadin in the past. He was transitioned to Xarelto, however, appea rs that he failed treatment and now will be re-initiated on Coumadin and Lovenox bridge. 3. Severe alcohol disorder. I have talked to the patient at length with regard to alcohol cessation . He is in agreement with this plan. 4. Paroxysmal atrial fibrillation. He is in sinus rhythm. DISPOSITION: He will be discharged home independently. Home care has been offered to the patient; h owever, he is declining. There are no pending studies. FOLLOWUP: Followup will be with his primary care physician, Dr. Jeanna Rahman, on Thursday, 018. An appointment has already been made. He has been educated about Coumadin and Lovenox therapy with INR evaluation in the outpatient setting. DISCHARGE MEDICATIONS: Please refer to EMR form. I have provided the patient a prescription for Anahi enox, as well as Coumadin. I spent greater than 35 minutes in the care, coordination, and management of the patient's dispositio n. /[id number]/MODL
== END 2018-06-18 11:17 | disposition home or self-care (01) | DRG 176 ==
LOC: F3E 15:44
PROVIDERS: ADMIT Internal Medicine; ATTEND Internal Medicine
DX: I26.99 Other pulmonary embolism without acute cor pulmonale (principal); D68.59 Other primary thrombophilia; I48.0 Paroxysmal atrial fibrillation; Z72.89 Other problems related to lifestyle; Z79.01 Long term (current) use of anticoagulants; Z86.711 Personal history of pulmonary embolism; Z86.718 Personal history of other venous thrombosis and embolism
CPT/HCPCS: 84484-PO; 85520-90; 96374; 97162-GP; 97166-GO; 97535-GO; G8978-GP-CK; G8979-GP-CI; G8987-GO-CJ; G8988-GO-CI; G8989-GO-CI; J1644; J1650; J2270; J2930; Q9967

== ENCOUNTER 2018-12-25 20:14 | Inpatient (IN) | payer MEDICAID, OTHER ==
--- NOTE | 2018-12-25 20:30 | EDPHY ---
HPI/HX/ROS/PE/MDM Narrative: CHIEF COMPLAINT: Alcohol intoxication HPI: The patient is a 63-year-old male with complex medical history significant for prior pulmonary embolism, atrial fibrillation, alcoholism and frequent hospitalizations. The patient was brought to the emergency department by EMS secondary to alcohol intoxication. On my exam, the patient is quite intoxicated. When asked why he is here, he states "I drank too much and my AFib..." and then stops speaking. REVIEW OF SYSTEMS: Unable to obtain secondary to AMS. PMH: Alcoholism, pulmonary embolus, atrial fibrillation SOCIAL HISTORY: History of alcohol abuse. Denies drug abuse. PHYSICAL EXAM: General:Patient is comfortably sleeping but easily arousable. He is quite intoxicated. ENT:Eyes are normal to inspection. ENT inspection normal. Neck: Normal inspection. Full range of motion. Respiratory:No respiratory distress. Breath sounds normal bilaterally. Cardiovascular: Regular rate and rhythm. Strong peripheral pulses. Normal cap refill. Abdomen:The abdomen is nontender to palpation. There are no peritoneal signs. There are normal bowel sounds. Back: Normal to inspection. No tenderness to palpation. Skin: Normal color. No rash. Warm and dry. Extremities: Normal appearance. Full range of motion. Neuro: No focal deficits. (Luis Fernando Gutierrez) ED Course: EKG was ordered and interpreted by myself. Please see b-datum system for official reading. (Luis Fernando Gutierrez) MDM: This patient arrives severely intoxicated. His chief complaint is unclear. He has not said anything about chest pain or shortness of breath to me. His EKG reveals normal sinus rhythm without signs of atrial fibrillation or cardiac ischemia. I think the patient is safe for further observation here in the emergency department with likely discharged either home or arc if condition is stable. I signed the patient out to Dr. Cisneros at 9:00 p.m.. (Luis Fernando Gutierrez ) 0329: Patient was signed over to me at 11:00 p.m.. Patient here intoxicated with alcohol. He is sober nicely throughout the emergency room visit tonight. He is ambulatory. Answers questions appropriately. He states he drank too much vodka tonight. States he tripped over his coffee taper and fell onto his right arm. Complains of right mid shaft humerus pain. His x-ray is unremarkable for acute fracture. I did reexamine his right upper extremity right now he has some mild ecchymosis to the posterior right upper extremity. However compartments are soft. Very minimal swelling. Good distal pulse, good cap refill warm extremity. No significant pain on exam. Patient attempted to walk was unable to do so. Given his INR is elevated will proceed with CT scan head without contrast. INR 9.4. No active bleeding here in the emergency room. Plan for admission for supratherapeutic INR Alcohol level elevated. 148 at 6:00 a.m.. Plan will be for CT scan head without contrast given the inability to walk recent fall, and supratherapeutic INR. Subsequent plan will be for admission for observation today for fall risk as we did attempt to walk him but he was unable to do so. Spoke with Dr. Bear agrees to admit. CT scan head without contrast negative for acute bleed. This was obtained due to fall and high INR. [id number]: I did reexamine the patient before he went upstairs. His right arm and good distal pulse, good cap refill, mild swelling noted the posterior right arm with ecchymosis. This will need to be watched today. Compartments are soft. Watch for further swelling. Given INR is at high. This was discussed at length with Dr. Bear the admitting physician. (Bahman Funes) - Data Points Imaging Results: Imaging Impressions Humerus X-Ray 12/25/18 21:17 Impression: No acute osseous findings. Laboratory Results: Laboratory Results 12/26/18 04:50 12/26/18 04:50 12/26/18 12/26/18 12/26/18 04:50 04:50 04:50 WBC 7.78 10^3/uL 10^3/uL (3.80-9.50) RBC 4.44 10^6/uL 10^6/uL (4.40-6.38) Hgb 14.7 g/dL g/dL (13.7-17.5) Hct 43.9 % % (40.0-51.0) MCV 98.9 fL fL (81.5-99.8) MCH 33.1 pg pg (27.9-34.1) MCHC 33.5 g/dL g/dL (32.4-36.7) RDW 13.4 % % (11.5-15.2) Plt Count 209 10^3/uL 10^3/uL (150-400) MPV 9.8 fL fL (8.7-11.7) Neut % (Auto) 71.0 % % (39.3-74.2) Lymph % (Auto) 20.2 % % (15.0-45.0) Parke % (Auto) 7.1 % % (4.5-13.0) Eos % (Auto) 0.4 % L % (0.6-7.6) Baso % (Auto) 1.2 % % (0.3-1.7) Nucleat RBC Rel Count 0.0 % % (0.0-0.2) Absolute Neuts (auto) 5.53 10^3/uL 10^3/uL (1.70-6.50) Absolute Lymphs (auto) 1.57 10^3/uL 10^3/uL (1.00-3.00) Absolute Monos (auto) 0.55 10^3/uL 10^3/uL (0.30-0.80) Absolute Eos (auto) 0.03 10^3/uL 10^3/uL (0.03-0.40) Absolute Basos (auto) 0.09 10^3/uL 10^3/uL (0.02-0.10) Absolute Nucleated RBC 0.00 10^3/uL 10^3/uL (0-0.01) Immature Gran % 0.1 % % (0.0-1.1) Immature Gran # 0.01 10^3/uL 10^3/uL (0.00-0.10) PT 70.9 SEC H SEC (12.0-15.0) INR 9.42 H* (0.83-1.16) APTT 92.4 SEC H SEC (23.0-38.0) Sodium 139 mEq/L mEq/L (135-145) Potassium 4.1 mEq/L mEq/L (3.5-5.2) Chloride 100 mEq/L mEq/L (97-110) Carbon Dioxide 21 mEq/l L mEq/l (22-31) Anion Gap 18 mEq/L H mEq/L (6-14) BUN 10 mg/dL mg/dL (7-23) Creatinine 0.8 mg/dL mg/dL (0.7-1.3) Estimated GFR > 60 Glucose 76 mg/dL mg/dL (70-100) Calcium 8.1 mg/dL L mg/dL (8.5-10.4) Ethyl Alcohol 148 mg/dL H mg/dL (0-10) Medications Given: Discontinued Medications Sodium Chloride (Ns) 1,000 mls @ 0 mls/hr IV EDNOW ONE; Wide Open PRN Reason: Protocol Stop: 12/26/18 04:24 Last Admin: 12/26/18 06:45 Dose: 1,000 mls General Time Seen by Provider: 12/25/18 20:18 Initial Vital Signs: Initial Vital Signs Temperature (C) 36.7 C 12/25/18 20:18 Heart Rate 72 12/25/18 20:18 Respiratory Rate 16 12/25/18 20:18 Blood Pressure 160/100 H 12/25/18 20:18 O2 Sat (%) 90 L 12/25/18 20:18 O2 Delivery Mode Nasal Cannula O2 (L/minute) 2 Allergies/Adverse Reactions: No Known Allergies Allergy (Unverified 12/25/18 20:24) Home Medications: Medication Instructions Recorded Albuterol [Proventil Inhaler HFA 1 - 2 puffs IH Q4H PRN 06/14/18 (*)] C,E,Zinc,Copper 11/Elohf0n/Lut 1 each PO DAILY 06/14/18 [Ocuvite Adult 50 Plus Softgel] Gabapentin [Neurontin 300 MG (*)] 900 mg PO TID 06/14/18 Ipratropium/Albuterol [Combivent 1 inh IH QID 06/14/18 Respimat Inhal [place](*)] Multivitamins [Multivitamin (*)] 1 each PO DAILY 06/14/18 Folic Acid [Folic Acid 1 MG (*)] 1 mg PO DAILY tab 06/18/18 traMADol [Ultram 50 mg (*)] 50 mg PO Q6 PRN 12/25/18 Metoprolol Tartrate [Metoprolol 25 mg PO BID 12/26/18 Tartrate] Warfarin Sodium [Coumadin 5MG (*)] 12 mg PO DAILY16 12/26/18 Departure - Departure Disposition: [facility] Acute Clinical Impression: Supratherapeutic INR Alcohol intoxication Qualifiers: Complication of substance-induced condition: uncomplicated Qualified Code(s): F10.920 - Alcohol use, unspecified with intoxication, uncomplicated Fall Qualifiers: Encounter type: initial encounter Qualified Code(s): W19.XXXA - Unspecified fall, initial encounter Hematoma of arm Qualifiers: Encounter type: initial encounter Laterality: right Qualified Code(s): S40.021A - Contusion of right upper arm, initial encounter Condition: Good
[2018-12-26] MEDS: NS 1,000 ML IV ONE ×2 (05:06→06:45)
[2018-12-26 05:14] LABS: PLATELET COUNT 209 10^3/uL (150-400)
[2018-12-26] MEDS ORDERED: PHYTONADIONE 10 MG in NS 50 ML IV ONE ×2 (05:52→11:15)
[2018-12-26 05:54] LABS: INR 9.42 (0.83-1.16); PROTIME(PATIENT) 70.9 SEC (12.0-15.0)
[2018-12-26] MEDS ORDERED: ONDANSETRON 4 MG/2 ML VIAL IVP PRN (06:06)
[2018-12-26] MEDS ORDERED: ONDANSETRON DISINTEGRATING 4 MG TAB PO PRN (06:06)
[2018-12-26] MEDS ORDERED: ACETAMINOPHEN 325 MG TAB PO PRN (06:06)
[2018-12-26] MEDS ORDERED: FLUMAZENIL 0.5 MG/5 ML MDV IVP PRN (06:31)
--- NOTE | 2018-12-26 06:48 | PDGENHP ---
History and Physical - Chief Complaint Poor balance - History of Present Illness 63 yo M w hx of PE, AF, and ETOH use d/o presents feeling unwell. He tells me he felt like he was about to pass out and fell onto his R arm. He denies LOC or hitting his head. He has been drinking about a pint of vodka daily for the last week. He states he was sober for a few weeks before that. He has been eating or drinking little else besides ETOH. He also tells me his gait has been very poor the last few months. He occasionally has to use a wheelchair as his balance is so poor. He was observed in the ED for 10 hours. After a period of observation he was unable to ambulate so laboratory work-up was sent. This was notable for INR of >9. He is being admitted for inability to walk safely and supratherapeutic INR. Case discussed with ED physician Dr. Sosa; records reviewed and summarized above. History Information - Allergies/Home Medication List Allergies/Adverse Reactions: No Known Allergies Allergy (Unverified 12/25/18 20:24) Home Medications: Albuterol [Proventil Inhaler HFA (*)] 1 - 2 puffs IH Q4H PRN 06/14/18 [Last Taken Unknown] C,E,Zinc,Copper 11/Somyf9y/Lut [Ocuvite Adult 50 Plus Softgel] 1 each PO DAILY 06/14/18 [Last Taken 06/13/18] Gabapentin [Neurontin 300 MG (*)] 900 mg PO TID 06/14/18 [Last Taken 06/14/18 09 :00] Ipratropium/Albuterol [Combivent Respimat Inhal Penelope(*)] 1 inh IH QID 06/14/18 [Last Taken 06/13/18] Multivitamins [Multivitamin (*)] 1 each PO DAILY 06/14/18 [Last Taken 06/13/18] traMADol 12/25/18 [Last Taken Unknown] I have personally reviewed and updated: family history, medical history - Past Medical History atrial fibrillation, DVT, pulmonary embolism Additional medical history: AT3 deficiency. etoh use disorder with withdrawal, ataxia, Wernickes - Surgical History Reports: appendectomy, cholecystectomy Additional surgical history: fasciotomy 2/2 compartment syndrome - Family History Additional family history: Alcoholism - Social History Smoking Status: Current every day smoker Review of Systems Review of Systems: ROS: 10pt was reviewed & negative except for what was stated in HPI & below Physical Exam Physical Exam: Temp Pulse Resp BP Pulse Ox 36.7 C 88 16 128/68 H 92 12/25/18 20:18 12/26/18 04:02 12/26/18 04:02 12/26/18 04:02 12/26/18 04:02 Constitutional: obese, unkempt Eyes: PERRL, anicteric sclera Ears, Nose, Mouth, Throat: moist mucous membranes, no oral mucosal ulcers Cardiovascular: regular rate and rhythym, no murmur, rub, or gallop Respiratory: no respiratory distress, clear to auscultation Gastrointestinal: normoactive bowel sounds, soft, non-tender abdomen Skin: warm, normal color Musculoskeletal: full muscle strength, no muscle tenderness Neurologic: AAOx3, CN II-XII Intact Psychiatric: interacting appropriately, not anxious Lab Data & Imaging Review 12/26/18 04:50 12/26/18 04:50 WBC 7.78 10^3/uL (3.80-9.50) 12/26/18 04:50 RBC 4.44 10^6/uL (4.40-6.38) 12/26/18 04:50 Hgb 14.7 g/dL (13.7-17.5) 12/26/18 04:50 Hct 43.9 % (40.0-51.0) 12/26/18 04:50 MCV 98.9 fL (81.5-99.8) 12/26/18 04:50 MCH 33.1 pg (27.9-34.1) 12/26/18 04:50 MCHC 33.5 g/dL (32.4-36.7) 12/26/18 04:50 RDW 13.4 % (11.5-15.2) 12/26/18 04:50 Plt Count 209 10^3/uL (150-400) 12/26/18 04:50 MPV 9.8 fL (8.7-11.7) 12/26/18 04:50 Neut % (Auto) 71.0 % (39.3-74.2) 12/26/18 04:50 Lymph % (Auto) 20.2 % (15.0-45.0) 12/26/18 04:50 [place] % (Auto) 7.1 % (4.5-13.0) 12/26/18 04:50 Eos % (Auto) 0.4 % (0.6-7.6) L 12/26/18 04:50 Baso % (Auto) 1.2 % (0.3-1.7) 12/26/18 04:50 Nucleat RBC Rel Count 0.0 % (0.0-0.2) 12/26/18 04:50 Absolute Neuts (auto) 5.53 10^3/uL (1.70-6.50) 12/26/18 04:50 Absolute Lymphs (auto) 1.57 10^3/uL (1.00-3.00) 12/26/18 04:50 Absolute Monos (auto) 0.55 10^3/uL (0.30-0.80) 12/26/18 04:50 Absolute Eos (auto) 0.03 10^3/uL (0.03-0.40) 12/26/18 04:50 Absolute Basos (auto) 0.09 10^3/uL (0.02-0.10) 12/26/18 04:50 Absolute Nucleated RBC 0.00 10^3/uL (0-0.01) 12/26/18 04:50 Immature Gran % 0.1 % (0.0-1.1) 12/26/18 04:50 Immature Gran # 0.01 10^3/uL (0.00-0.10) 12/26/18 04:50 PT 70.9 SEC (12.0-15.0) H 12/26/18 04:50 INR 9.42 (0.83-1.16) H* 12/26/18 04:50 APTT 92.4 SEC (23.0-38.0) H 12/26/18 04:50 Sodium 139 mEq/L (135-145) 12/26/18 04:50 Potassium 4.1 mEq/L (3.5-5.2) 12/26/18 04:50 Chloride 100 mEq/L (97-110) 12/26/18 04:50 Carbon Dioxide 21 mEq/l (22-31) L 12/26/18 04:50 Anion Gap 18 mEq/L (6-14) H 12/26/18 04:50 BUN 10 mg/dL (7-23) 12/26/18 04:50 Creatinine 0.8 mg/dL (0.7-1.3) 12/26/18 04:50 Estimated GFR > 60 12/26/18 04:50 Glucose 76 mg/dL (70-100) 12/26/18 04:50 Calcium 8.1 mg/dL (8.5-10.4) L 12/26/18 04:50 Ethyl Alcohol 148 mg/dL (0-10) H 12/26/18 04:50 Imaging Review: Imaging Impressions Humerus X-Ray 12/25/18 21:17 Impression: No acute osseous findings. Assessment & Plan Assessment: 63 yo M w/ AF, hx PE on anticoagulation presents after a fall with supratherapeutic INR and unsteady gait. Plan: 1. Supratherapeutic INR - INR>9 on admission, no evidence of bleeding. He is on warfarin for hx of multiple PEs, ATIII def., and AF. - Hold warfarin - Monitor INR - Will check CTH noting fall 2. Unsteady gait - Patient states this has been going on for months. He drinks ETOH heavily and I suspect this is related. - CTH as above - High dose thiamine - PT/OT evaluations 3. ETOH use d/o - Drinking about 1 pint vodka daily, he reports prior hx of withdrawal seizures. - CIWA protocol ordered - CM consult 4. Hx PE, ATIII def - On warfarin as above. - Hold for now, goal INR 2-3 5. Hx AF - In NSR on admission ECG. Diet - Regular Code - Full Ppx - Holding warfarin, INR supratherapeutic Dispo - Admit under observation status
[2018-12-26] MEDS: LORazepam 2 MG/ML INJ IVP PRN ×4 (08:38→19:49)
[2018-12-26] MEDS: THIAMINE HCL 500 MG in NS 100 ML IV SCH (08:41)
[2018-12-26] MEDS: IPRATROPIUM/ALBUTEROL 4GM MDI IH SCH ×3 (11:08→21:27)
[2018-12-26] MEDS: MULTIVITAMINS 1 EACH TAB PO SCH (12:33)
[2018-12-26] MEDS: FOLIC ACID 1 MG TAB PO SCH (12:33)
[2018-12-26 13:55] LABS: INR 3.51 (0.83-1.16); PROTIME(PATIENT) 33.4 SEC (12.0-15.0)
[2018-12-26] MEDS: GABAPENTIN 300 MG CAP PO SCH ×2 (15:28→19:45)
[2018-12-26] MEDS: traMADol 50 MG TAB PO PRN (15:28)
--- NOTE | 2018-12-26 16:00 | GCON ---
[f rep st] CONSULTATION DATE OF CONSULTATION: 12/26/2018 CHIEF COMPLAINT: Fall with right upper extremity hematoma. HISTORY OF PRESENT ILLNESS: Briefly, this is a 63-year-old male on anticoagulation, with a history o f heavy alcohol use, presented to the emergency department last evening, early this morning complaini ng of not feeling well. He states that he was walking, maybe tripped over a coffee table, but fell o nto his outstretched right arm. Denies hitting his head or losing any consciousness. All of this espinosa ppening after drinking about a pint of vodka each day for the last week. Other than the alcohol, he has not really been doing much, including eating. Subsequently, he presented to the emergency depart ment. It was notable that he had an elevated INR of greater than 9 and hematoma in his axilla. He d oes complain of pain in his axilla which is worse with movement. Otherwise, he is resting comfortabl y. PAST MEDICAL HISTORY: Atrial fibrillation, DVT and multiple pulmonary embolisms, a T3 deficiency and very heavy alcohol use. SURGICAL HISTORY: Appendectomy, cholecystectomy, fasciotomy in the lower extremity secondary to comp artment syndrome remotely. FAMILY HISTORY: Alcoholism. SOCIAL HISTORY: Continues to smoke. Very heavy drinker. Lives independently. REVIEW OF SYSTEMS: A full 10-point review was performed. PHYSICAL EXAM: VITAL SIGNS: Temperature 36.9, blood pressure 122/65, heart rate is 91, and he is 93 % on 2 L. GENERAL: He is alert, oriented, and nondistressed. EYES: His pupils are equal, round, a nd reactive to light and accommodation. His extraocular movements are intact. EARS, NOSE, MOUTH, TH ROAT: He has dry mucous membranes and poor dentition. His hearing appears normal. CARDIOVASCULAR: He has no murmurs, rubs, or gallops. RESPIRATORY: No respiratory distress, rales, or rhonchi. GI: His abdomen is soft, nondistended with normoactive bowel sounds. SKIN: He has a significant hemat alesia in the right upper extremity extending into the axilla. The remainder of the arm is soft. The d istal neurovascular appears intact. I see no signs of compartment syndrome at this point in time, gi evon the location and small area of the current hematoma. MUSCULOSKELETAL: Full strength. No tender ness, with normal joint range of motion. NEUROLOGIC: He is alert and oriented x3. His cranial nerv es 2-12 are intact. PSYCH: He is interacting appropriately. He is not anxious or encephalopathic. LYMPH/HEME/IMMUNOLOGIC: He has no cervical groin or supraclavicular lymphadenopathy appreciated. LABORATORY DATA: White blood cell count 7, H and H stable at 14 and 44, platelets are 209. Coag's a re significant for an elevated supratherapeutic INR of 9.4. Chemistry shows a low CO2 of 21, an anio n gap of 18, calcium of 8 and a creatinine of 0.8. Tox shows an ETOH of 148. ASSESSMENT AND PLAN: A 63-year-old male with supratherapeutic INR, secondary to medication and alcoh ol abuse, presents with an upper extremity hematoma. I was asked to evaluate him for possible compar tment syndrome. Given the location and the small size of the current hematoma and a reassuring exam, I do not feel he currently has any worrisome signs for compartment syndrome. I do feel that he need s his INR reversed, at least to a close to normal therapeutic level, as soon as possible. We will co eloina to follow. If the hematoma were to grow significantly and his exam were to become less reassu ring, he would likely need to go to the operating room for evacuation. I discussed these findings wi th the hospitalist caring for the patient, as well as the patient. /[id number]/MODL
--- NOTE | 2018-12-26 16:16 | PDMN ---
Medical Necessity Medical necessity: [facility] [place] [id number] Substance Related D/O, 2 days: 63 yo presents w/ generally feeling unwell w/ syncope and fall. Eval reveals unsteady gait w/ heavy ETOH use and supratherapeutic INR>9 on admit. Initially OBS for workup/ monitoring but pt requires additional MN as pt high risk for etoh w/d w/ CIWA score currently 5 and hx of w/d seizures, trauma consult to eval R arm hematoma that developed as result of fall. Change to IP status 12/26/18@1001 per MD order. Hx PE, DVT, Afib, ETOH abuse w/ w/d, ataxia and Wernickes
--- NOTE | 2018-12-26 16:19 | HOSPPROG ---
Hospitalist Progress Note Assessment/Plan: * Hematoma of upper arm s/p fall -concern for possible compartment syndrome - trauma surgery consulted -reverse INR for bleeding * Etoh withdrawal -IV ativan per CIWA * Supratherapeutic INR -probably due to heavy Etoh while on warfarin * Hypercoagulable state, AT III deficiency, h/o multiple PE -will need restart anticoagulation when stable * AFib Subjective: no new complaints. Objective: Vital Signs Temp Pulse Resp BP Pulse Ox 36.9 C 92 20 138/69 H 93 12/26/18 15:37 12/26/18 15:37 12/26/18 15:37 12/26/18 15:37 12/26/18 15:37 Laboratory Results 12/26/18 13:30 12/25/18 12/26/18 12/27/18 05:59 05:59 05:59 Output Total 800 Balance -800 PT 33.4 SEC (12.0-15.0) H 12/26/18 13:30 INR 3.51 (0.83-1.16) H 12/26/18 13:[address] velez regarding trauma consult head ct negative - Physical Exam Constitutional: no apparent distress, appears nourished, not in pain Cardiovascular: regular rate and rhythym, no murmur, rub, or gallop Respiratory: no respiratory distress, no rales or rhonchi, clear to auscultation Gastrointestinal: normoactive bowel sounds, soft, non-tender abdomen, no palpable masses Skin: other (firm hematoma posterior arm right upper) Neurologic: AAOx3, sensation intact bilaterally Psychiatric: interacting appropriately, not anxious, not encephalopathic, thought process linear ICD10 Worksheet Patient Problems: Problems Problem Status Onset Depression - Depressive disorder Active Alcohol dependence Active Recurrent pulmonary embolism Chronic Acute respiratory failure Acute COPD (chronic obstructive pulmonary disease) Acute Cor pulmonale, chronic Acute Severe 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
--- NOTE | 2018-12-26 17:54 | SOAPPROG ---
SOAP Progress Note Assessment/Plan: Assessment: checked on the patients arm this evening. Hematoma is stable, arm is overall sore but soft and there arw no neuro or vascular clinical signs of compartment. INR downtrending, will continue tobfollow Plan: 12/26/18 17:51 Objective: Vital Signs Temp Pulse Resp BP Pulse Ox 36.9 C 97 18 138/69 H 91 L 12/26/18 15:37 12/26/18 16:30 12/26/18 16:30 12/26/18 15:37 12/26/18 16:30 Laboratory Results 12/26/18 13:30 12/25/18 12/26/18 12/27/18 05:59 05:59 05:59 Output Total 800 Balance -800 PT 33.4 SEC (12.0-15.0) H 12/26/18 13:30 INR 3.51 (0.83-1.16) H 12/26/18 13:30 ICD10 Worksheet Patient Problems: Problems Problem Status Onset Alcohol intoxication Acute Fall Acute Supratherapeutic INR Acute Alcohol dependence Active Depression - Depressive disorder Active Acute respiratory failure Acute Anticoagulant-induced bleeding Acute Antithrombin III deficiency Acute COPD (chronic obstructive pulmonary disease) Acute Coagulopathy Acute Cor pulmonale, chronic Acute Gastrointestinal bleeding, upper Acute Pulmonary embolism Acute Severe 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
[2018-12-26] MEDS: METOPROLOL TARTRATE 25 MG TAB PO SCH (19:45)
[2018-12-27] MEDS: LORazepam 2 MG/ML INJ IVP PRN ×6 (00:43→22:55)
[2018-12-27 04:40] LABS: INR 1.62 (0.83-1.16); PROTIME(PATIENT) 18.5 SEC (12.0-15.0)
[2018-12-27] MEDS: IPRATROPIUM/ALBUTEROL 4GM MDI IH SCH ×5 (05:48→20:26)
--- NOTE | 2018-12-27 08:52 | SOAPPROG ---
SOAP Progress Note Assessment/Plan: Assessment: 63yo M s/p fall c RUE hematoma - VSS, HDS - INR more appropriate - the swelling and bruise in the right upper arm and axilla is stable - he is neuro intact has full strength and sensation with good distal pulses - upper arm and forearm compartments are soft - will cont to follow, things are resolving, will need to watch skin for breakdown but no concerns for compartment Plan: 12/26/18 17:51 12/27/18 08:51 Subjective: sleepy but arousable Objective: Vital Signs Temp Pulse Resp BP Pulse Ox 36.9 C 65 16 138/68 H 94 12/27/18 07:26 12/27/18 07:26 12/27/18 07:26 12/27/18 07:26 12/27/18 07:26 Laboratory Results 12/27/18 03:55 12/26/18 12/27/18 12/28/18 05:59 05:59 05:59 Intake Total 440 Output Total 1250 Balance -810 PT 18.5 SEC (12.0-15.0) H 12/27/18 03:55 INR 1.62 (0.83-1.16) H 12/27/18 03:55 ICD10 Worksheet Patient Problems: Problems Problem Status Onset Alcohol intoxication Acute Fall Acute Supratherapeutic INR Acute Alcohol dependence Active Depression - Depressive disorder Active Acute respiratory failure Acute Anticoagulant-induced bleeding Acute Antithrombin III deficiency Acute COPD (chronic obstructive pulmonary disease) Acute Coagulopathy Acute Cor pulmonale, chronic Acute Gastrointestinal bleeding, upper Acute Pulmonary embolism Acute Severe 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
[2018-12-27] MEDS: FOLIC ACID 1 MG TAB PO SCH ×2 (09:03→09:43)
[2018-12-27] MEDS: METOPROLOL TARTRATE 25 MG TAB PO SCH ×2 (09:03→19:36)
[2018-12-27] MEDS: MULTIVITAMINS 1 EACH TAB PO SCH (09:03)
[2018-12-27] MEDS: GABAPENTIN 300 MG CAP PO SCH ×3 (09:03→22:55)
[2018-12-27] MEDS: PRESERVISION AREDS2 FORMULA EYE VIT 1 EACH PO SCH (09:03)
--- NOTE | 2018-12-27 09:12 | ASMTLACE ---
NEELAM Acuity / Level of Answers: Yes Care: Did the patient have an inpatient admission? Comorbidities - select Answers: Chronic pulmonary disease all that apply History of falls Opioid dependence / Chronic pain Other Notes: PE; AFib # of Emergency department Answers: 1-2 visits in the last 6 months Social determinants Answers: History of substance abuse (ETOH, street drugs, prescription drugs, etc.) Score: 17 Date Signed: 12/27/2018 09:11 AM Electronically Signed By:Aislinn Nieto
[2018-12-27] MEDS: THIAMINE HCL 500 MG in NS 100 ML IV SCH (10:33)
[2018-12-27] MEDS ORDERED: ENOXAPARIN 40 MG/0.4 ML SYR SC ONE (15:42)
--- NOTE | 2018-12-27 16:46 | HOSPPROG ---
Hospitalist Progress Note Assessment/Plan: * Hematoma of upper arm s/p fall -no compartment syndrome, but continued tense hematoma with severe pain * Acute blood loss anemia -continue to follow H/H * Etoh withdrawal -IV ativan per CIWA * Supratherapeutic INR -probably due to heavy Etoh while on warfarin -s/p IV Vitamin K * Hypercoagulable state, AT III deficiency, h/o multiple PE -will need restart anticoagulation when stable -Lovenox 40mg x 1 today -consider IV heparin gtt if H/H stabilizes * AFib Subjective: Still with severe pain at hematoma, still with Etoh withdrawal using IV ativan Objective: Vital Signs Temp Pulse Resp BP Pulse Ox 36.9 C 98 17 110/65 93 12/27/18 15:31 12/27/18 15:31 12/27/18 15:31 12/27/18 15:31 12/27/18 15:31 Laboratory Results 12/27/18 03:55 12/26/18 12/27/18 12/28/18 05:59 05:59 05:59 Intake Total 440 550 Output Total 1250 225 Balance -810 325 PT 18.5 SEC (12.0-15.0) H 12/27/18 03:55 INR 1.62 (0.83-1.16) H 12/27/18 03:55 - Physical Exam Constitutional: no apparent distress, appears nourished, not in pain Cardiovascular: regular rate and rhythym, no murmur, rub, or gallop Respiratory: no respiratory distress, no rales or rhonchi, clear to auscultation Gastrointestinal: normoactive bowel sounds, soft, non-tender abdomen, no palpable masses Skin: other (tense hematoma posterior shoulder and upper arm right) Musculoskeletal: full muscle strength, no muscle tenderness, normal joint ROM Neurologic: AAOx3, sensation intact bilaterally Psychiatric: interacting appropriately, not anxious, not encephalopathic, thought process linear ICD10 Worksheet Patient Problems: Problems Problem Status Onset Depression - Depressive disorder Active Alcohol dependence Active Recurrent pulmonary embolism Chronic Acute respiratory failure Acute COPD (chronic obstructive pulmonary disease) Acute Cor pulmonale, chronic Acute Severe 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 Hematoma of arm Acute
[2018-12-27] MEDS: traMADol 50 MG TAB PO PRN (17:18)
--- NOTE | 2018-12-27 18:25 | ASMTCMCOM ---
CM Note CM Note Notes: 12/27/2018 Case Management Note Met w/pt to discuss d/c needs. Pt admitted for ETOH w/d. Discussed in rounds today; PA 5. Therapies recommending SNF rehab. Pt brother Luis [phone] in room. Pt sister in law (Luis's ) Noreen can be reached at [phone]. Pt in agreement w/SNF rehab. Previous stay at [facility]. Faxed referral via [email or web address]. CAGE completed. Resources for Medicare treatment options provided. Pt has achieved sobriety with AA several times; prefers different approach. Recommended individual counseling through [facility]. PCP is Dr. Rahman with [facility] [place]. Case Management d/c poc: [facility] pending acceptance. Case Management to follow. Date Signed: 12/27/2018 04:53 PM Electronically Signed By:Kayy Arellano RN
--- NOTE | 2018-12-27 18:30 | ASMTCAGE ---
CAGE Do you feel you ought to Answers: Yes cut down on your drinking or drug use? Do people annoy you by Answers: No criticizing your drinking or drug use? Do you feel guilty about Answers: Yes your drinking or drug use? Do you drink or use drugs Answers: No first thing in the morning ([employer])? Additional Comments a fifth to a pint of vodka per day. Provided resources. Declined AA; prefers one on one counseling. Date Signed: 12/27/2018 04:53 PM Electronically Signed By:Kayy Arellano RN
[2018-12-28] MEDS: LORazepam 2 MG/ML INJ IVP PRN ×2 (04:00→09:53)
[2018-12-28] MEDS: IPRATROPIUM/ALBUTEROL 4GM MDI IH SCH ×4 (06:14→21:12)
[2018-12-28] MEDS ORDERED: HEPARIN 10,000 UNIT/10 ML MDV (1,000 UNIT/ML) IVP PRN (08:36)
[2018-12-28] MEDS ORDERED: HEPARIN/DEXTROSE 500 ML IV SCH (08:45)
[2018-12-28] MEDS: MULTIVITAMINS 1 EACH TAB PO SCH (09:12)
[2018-12-28] MEDS: GABAPENTIN 300 MG CAP PO SCH ×3 (09:12→21:01)
[2018-12-28] MEDS: FOLIC ACID 1 MG TAB PO SCH (09:12)
[2018-12-28] MEDS: METOPROLOL TARTRATE 25 MG TAB PO SCH ×2 (09:12→21:01)
[2018-12-28] MEDS: PRESERVISION AREDS2 FORMULA EYE VIT 1 EACH PO SCH (09:12)
[2018-12-28 09:42] LABS: PLATELET COUNT 142 10^3/uL (150-400)
[2018-12-28 09:43] LABS: INR 1.14 (0.83-1.16); PROTIME(PATIENT) 14.1 SEC (12.0-15.0)
[2018-12-28] MEDS: THIAMINE HCL 500 MG in NS 100 ML IV SCH (09:53)
--- NOTE | 2018-12-28 12:44 | ASMTCMCOM ---
CM Note CM Note Notes: 12/28/2018 Case Management Note Notified from [facility] that pt is in copay days with 55 days remaining. Pt will pay $170.50 per day with 14 days upfront. Discussed with pt. Pt agreeable. Discussed in rounds today; anticipating d/c on . Case Management d/c poc: [facility] SNF rehab Case Management to follow. Date Signed: 12/28/2018 12:43 PM Electronically Signed By:Kayy Arellano RN
--- NOTE | 2018-12-28 14:37 | HOSPPROG ---
Hospitalist Progress Note Assessment/Plan: * Hematoma of upper arm s/p fall -no compartment syndrome, hematoma evolving -elevate extremity - very swollen * Acute blood loss anemia -continue to follow H/H * Etoh withdrawal -ativan per CIWA * Supratherapeutic INR -probably due to heavy Etoh while on warfarin -s/p IV Vitamin K * Hypercoagulable state, AT III deficiency, h/o multiple PE -restart anti-coagulation with IV heparin - watch closely * AFib Subjective: still lots of arm pain, sometimes hallucinating Objective: Vital Signs Temp Pulse Resp BP Pulse Ox 36.4 C 82 15 96/60 L 93 12/28/18 11:17 12/28/18 11:25 12/28/18 11:25 12/28/18 11:17 12/28/18 11:25 Laboratory Results 12/28/18 09:15 12/27/18 12/28/18 12/29/18 05:59 05:59 05:59 Intake Total 440 1300 Output Total 1250 1170 Balance -810 130 PT 14.1 SEC (12.0-15.0) 12/28/18 09:15 INR 1.14 (0.83-1.16) 12/28/18 09:15 - Physical Exam Constitutional: no apparent distress, appears nourished, not in pain Cardiovascular: regular rate and rhythym, no murmur, rub, or gallop Respiratory: no respiratory distress, no rales or rhonchi, clear to auscultation Gastrointestinal: normoactive bowel sounds, soft, non-tender abdomen, no palpable masses Skin: other (large hematoma posterior right shoulder down arm, large amt arm edema) Neurologic: AAOx3, sensation intact bilaterally Psychiatric: interacting appropriately, not anxious, not encephalopathic, thought process linear ICD10 Worksheet Patient Problems: Problems Problem Status Onset Depression - Depressive disorder Active Alcohol dependence Active Recurrent pulmonary embolism Chronic Acute respiratory failure Acute COPD (chronic obstructive pulmonary disease) Acute Cor pulmonale, chronic Acute Severe 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 Hematoma of arm Acute
[2018-12-28] MEDS ORDERED: WARFARIN SODIUM 4 MG TAB PO ONE (16:00)
[2018-12-28] MEDS: traMADol 50 MG TAB PO PRN (17:21)
[2018-12-28] MEDS: LORazepam 1 MG TAB PO PRN ×2 (17:21→21:01)
[2018-12-29] MEDS: traMADol 50 MG TAB PO PRN ×3 (00:04→21:27)
[2018-12-29] MEDS: IPRATROPIUM/ALBUTEROL 4GM MDI IH SCH ×5 (00:11→20:27)
[2018-12-29 05:18] LABS: INR 1.16 (0.83-1.16); PROTIME(PATIENT) 14.3 SEC (12.0-15.0)
[2018-12-29] MEDS: THIAMINE HCL 100 MG TAB PO SCH ×2 (06:32→08:32)
[2018-12-29] MEDS: MULTIVITAMINS 1 EACH TAB PO SCH (08:30)
[2018-12-29] MEDS: PRESERVISION AREDS2 FORMULA EYE VIT 1 EACH PO SCH (08:30)
[2018-12-29] MEDS: GABAPENTIN 300 MG CAP PO SCH ×3 (08:31→21:27)
[2018-12-29] MEDS: METOPROLOL TARTRATE 25 MG TAB PO SCH ×2 (08:31→21:25)
[2018-12-29] MEDS: FOLIC ACID 1 MG TAB PO SCH (08:31)
[2018-12-29] MEDS ORDERED: WARFARIN SODIUM 4 MG TAB PO ONE (16:00)
[2018-12-29] MEDS ORDERED: HEPARIN 10,000 UNIT/10 ML MDV (1,000 UNIT/ML) IVP PRN (16:46)
--- NOTE | 2018-12-29 16:50 | HOSPPROG ---
Hospitalist Progress Note Assessment/Plan: * Hematoma of upper arm s/p fall -no compartment syndrome, hematoma evolving -elevate extremity - very swollen -question of worsening - IV heparin held today -H/H stable - restart heparin soon - tentatively tomorrow am * Acute blood loss anemia -continue to follow H/H * Etoh withdrawal -ativan per CIWA * Supratherapeutic INR -probably due to heavy Etoh while on warfarin -s/p IV Vitamin K * Hypercoagulable state, AT III deficiency, h/o multiple PE -restart anti-coagulation with IV heparin - watch closely * AFib Subjective: IV heparin held due to increased arm edema and extension of hematoma Objective: Vital Signs Temp Pulse Resp BP Pulse Ox 36.6 C 78 18 96/51 L 93 12/29/18 11:45 12/29/18 12:30 12/29/18 12:30 12/29/18 11:45 12/29/18 12:30 Laboratory Results 12/29/18 16:25 12/29/18 04:31 12/28/18 12/29/18 12/30/18 05:59 05:59 05:59 Intake Total 1300 875 Output Total 1170 575 400 Balance 130 300 -400 PT 14.3 SEC (12.0-15.0) 12/29/18 04:31 INR 1.16 (0.83-1.16) 12/29/18 04:31 CT chest - no extension of hematoma deeper - Physical Exam Constitutional: no apparent distress, appears nourished, not in pain Cardiovascular: regular rate and rhythym, no murmur, rub, or gallop, edema (RUE) Respiratory: no respiratory distress, no rales or rhonchi, clear to auscultation Gastrointestinal: normoactive bowel sounds, soft, non-tender abdomen, no palpable masses Skin: warm, induration, other (right posterior hematoma softer, but slight spread, more mature looking), No mottled Neurologic: AAOx3, sensation intact bilaterally Psychiatric: interacting appropriately, not anxious, not encephalopathic, thought process linear ICD10 Worksheet Patient Problems: Problems Problem Status Onset Depression - Depressive disorder Active Alcohol dependence Active Recurrent pulmonary embolism Chronic Acute respiratory failure Acute COPD (chronic obstructive pulmonary disease) Acute Cor pulmonale, chronic Acute Severe 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 Hematoma of arm Acute
[2018-12-29] MEDS ORDERED: HEPARIN/DEXTROSE 500 ML IV SCH (17:00)
[2018-12-30] MEDS ORDERED: IPRATROPIUM/ALBUTEROL 4GM MDI IH PRN (00:30)
[2018-12-30 05:38] LABS: INR 1.06 (0.83-1.16); PROTIME(PATIENT) 13.4 SEC (12.0-15.0)
[2018-12-30] MEDS: traMADol 50 MG TAB PO PRN ×3 (06:07→18:24)
[2018-12-30] MEDS ORDERED: HEPARIN 10,000 UNIT/10 ML MDV (1,000 UNIT/ML) IVP PRN (08:00)
[2018-12-30] MEDS: HEPARIN/DEXTROSE 500 ML IV SCH ×2 (08:01→23:05)
[2018-12-30] MEDS: METOPROLOL TARTRATE 25 MG TAB PO SCH ×2 (08:09→23:17)
[2018-12-30] MEDS: PRESERVISION AREDS2 FORMULA EYE VIT 1 EACH PO SCH (08:11)
[2018-12-30] MEDS: MULTIVITAMINS 1 EACH TAB PO SCH (08:11)
[2018-12-30] MEDS: THIAMINE HCL 100 MG TAB PO SCH (08:11)
[2018-12-30] MEDS: GABAPENTIN 300 MG CAP PO SCH ×3 (08:12→22:03)
[2018-12-30] MEDS: FOLIC ACID 1 MG TAB PO SCH (08:12)
--- NOTE | 2018-12-30 11:29 | HOSPPROG ---
Hospitalist Progress Note Assessment/Plan: #Hematoma of upper arm s/p fall -no compartment syndrome, hematoma stable. Edema noted on CT -elevate extremity - very swollen * Acute blood loss anemia -H/H stable * Etoh withdrawal -not scoring on CIWA, counseled on cessations. Wants to go back to AA meetings - * Supratherapeutic INR -probably due to heavy Etoh while on warfarin -s/p IV Vitamin K * Hypercoagulable state, AT III deficiency, h/o multiple PE -restart anti-coagulation with IV heparin today. If no issues, resume Coumadin Thursday * AFib: rate-controlled. BB. Heparin gtt Inpatient admission for close monitoring of hematoma while on AC Subjective: pain and swelling in right arm improved Objective: Vital Signs Temp Pulse Resp BP Pulse Ox 36.4 C 69 20 113/53 L 93 12/30/18 11:25 12/30/18 11:25 12/30/18 11:25 12/30/18 11:25 12/30/18 11:25 Laboratory Results 12/30/18 04:25 12/29/18 04:31 12/29/18 12/30/18 12/31/18 05:59 05:59 05:59 Intake Total 875 Output Total 575 2000 Balance 300 -2000 PT 13.4 SEC (12.0-15.0) 12/30/18 04:25 INR 1.06 (0.83-1.16) 12/30/18 04:25 - Time Spent With Patient Time Spent with Patient: greater than 25 minutes Time Spent with Patient: Greater than 25 minutes spent on this patients care, greater than 50% of time spent counseling, educating, and coordinating care regarding the above mentioned plan. - Physical Exam Constitutional: no apparent distress Eyes: PERRL Ears, Nose, Mouth, Throat: moist mucous membranes Cardiovascular: regular rate and rhythym Respiratory: no respiratory distress Gastrointestinal: normoactive bowel sounds Musculoskeletal: other (right UE with extensive encompassing bruising. Firm on lateral aspect. Brusing receding from marked like. +2 radial pulse and good cap refill) Neurologic: CN II-XII Intact Psychiatric: interacting appropriately ICD10 Worksheet Patient Problems: Problems Problem Status Onset Alcohol intoxication Acute Fall Acute Hematoma of arm Acute Supratherapeutic INR Acute Alcohol dependence Active Depression - Depressive disorder Active Acute respiratory failure Acute Anticoagulant-induced bleeding Acute Antithrombin III deficiency Acute COPD (chronic obstructive pulmonary disease) Acute Coagulopathy Acute Cor pulmonale, chronic Acute Gastrointestinal bleeding, upper Acute Pulmonary embolism Acute Severe 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
[2018-12-30] MEDS: WARFARIN SODIUM 4 MG TAB PO SCH (15:34)
[2018-12-31] MEDS: traMADol 50 MG TAB PO PRN ×4 (00:32→20:24)
[2018-12-31 07:16] LABS: INR 1.09 (0.83-1.16); PROTIME(PATIENT) 13.7 SEC (12.0-15.0)
[2018-12-31] MEDS: GABAPENTIN 300 MG CAP PO SCH ×3 (08:22→20:23)
[2018-12-31] MEDS: PRESERVISION AREDS2 FORMULA EYE VIT 1 EACH PO SCH (08:22)
[2018-12-31] MEDS: METOPROLOL TARTRATE 25 MG TAB PO SCH ×2 (08:23→21:43)
[2018-12-31] MEDS: MULTIVITAMINS 1 EACH TAB PO SCH (08:23)
[2018-12-31] MEDS: THIAMINE HCL 100 MG TAB PO SCH (08:23)
[2018-12-31] MEDS: FOLIC ACID 1 MG TAB PO SCH (08:23)
--- NOTE | 2018-12-31 09:41 | HOSPPROG ---
Hospitalist Progress Note Assessment/Plan: DIAGNOSES: * Injury fall with large hematoma to right arm * Acute blood loss anemia from above * Gait instability due to alcohol abuse, pain * Excessive anticoagulation at admission due to concomitant use of alcohol and is Coumadin * Atrial fibrillation * History of multiple PEs * Anti thrombin 3 deficiency This patient is medically stable for discharge, however at this time he is declining senior living facility for financial reasons; he is not really safe to be at home on his own trying to go up and down stairs to get into his apartment. His anticoagulation issues are complicated in that he has 2 very strong indications to try to continue anticoagulation but is alcohol make it unsafe particularly in the setting of injury falls I had a long talk with the patient about these issues today PLANS: * Continue PT and OT * I have discussed the case in detail with case management today and they are looking for possible options that may be helpful at keeping him safe or potentially getting him to senior living if possible * Resume Coumadin today at lower dose than his outpatient dose, continue heparin for the moment; could be discharged on Coumadin Lovenox, very clearly needs meticulous follow-up of anticoagulation (patient has anti thrombin 3 deficiency) * Daily INRs here * Will consider discharging today or in the next day or 2 depending on case management progress SUBJECTIVE: Ongoing pain in his right arm unchanged Yesterday walked with walker but unsteady on feet, has not tried stairs here yet and has stairs at his apartment PT and OT both yesterday were still recommending senior living facility for safety concerns OBJECTIVE Vitals reviewed: Stable without fever Exam: alert oriented relaxed, sitting in chair skin warm dry color ok resps not labored lungs diminished but clear BSs heart regular limbs unchanged large hematoma right arm iv site ok Lab data: Hemoglobin stable platelets stable Heparin level in target range Objective: Vital Signs Temp Pulse Resp BP Pulse Ox 36.6 C 79 16 127/65 H 93 12/31/18 07:52 12/31/18 07:52 12/31/18 07:52 12/31/18 07:52 12/31/18 07:52 Laboratory Results 12/31/18 07:20 12/29/18 04:31 12/30/18 12/31/18 01/01/19 06:59 06:59 06:59 Intake Total 1058 Output Total 1999 1374 Balance -1999 -317 PT 13.7 SEC (12.0-15.0) 12/31/18 06:30 INR 1.09 (0.83-1.16) 12/31/18 06:30 - Time Spent With Patient Time Spent with Patient: greater than 35 minutes Time Spent with Patient: Greater than 35 minutes spent on this patients care, greater than 50% of time spent counseling, educating, and coordinating care regarding the above mentioned plan. ICD10 Worksheet Patient Problems: Problems Problem Status Onset Alcohol intoxication Acute Fall Acute Hematoma of arm Acute Supratherapeutic INR Acute Alcohol dependence Active Depression - Depressive disorder Active Acute respiratory failure Acute Anticoagulant-induced bleeding Acute Antithrombin III deficiency Acute COPD (chronic obstructive pulmonary disease) Acute Coagulopathy Acute Cor pulmonale, chronic Acute Gastrointestinal bleeding, upper Acute Pulmonary embolism Acute Severe 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
--- NOTE | 2018-12-31 12:03 | ASMTCMCOM ---
CM Note CM Note Notes: Met with pt to discuss dc poc. He now states he does not think he can pay the $170.00/day (per [facility], he must pay 14 days up front). Pt lives alone and has no one to help him with his car. Pt states he lives on the ground floor apt and does not have stairs, as CM previously thought. Pt is concerned for his car, he is having it towed to [facility] on Thursday and is concerned if he does not pick it up. Pt gave CM permission to talk to car dealership to let them know pt's predicament. Also talked to pt about [facility] program, may be a good candidate. He is agreeable to learning more. CM called [facility] ([phone]) and spoke with Shana. Pt's car has an appointment on Thursday at 11:45, his car will be on [employer] team (silver team) since his car has few miles, they are going to replace the battery. CM let Shana know that pt may not be able to get car for at least a week or so. Shana made made notes for the team and assures that it will not be a problem but to keep in touch with them to let them know when he may be able to pick it up. CM spoke with Phuong at [facility] who will come today around noon to meet with pt, to discuss program. And last but not least, CM called Maureen at [facility] to find out if they could be flexible with payment but they cannot. Spoke w/Ever at [facility], they can accept for HC if pt dcs home. PCP is Jeanna Rahman DC Plan: Homecare/ [facility] (RN/PT/OT/SW) Date Signed: 12/31/2018 12:02 PM Electronically Signed By:Vickie Roberts RN
[2018-12-31] MEDS: WARFARIN SODIUM 4 MG TAB PO SCH (15:38)
[2018-12-31] MEDS: HEPARIN/DEXTROSE 500 ML IV SCH (15:38)
[2019-01-01 06:06] LABS: INR 1.19 (0.83-1.16); PROTIME(PATIENT) 14.6 SEC (12.0-15.0)
[2019-01-01] MEDS: HEPARIN/DEXTROSE 500 ML IV SCH (06:40)
[2019-01-01 07:34] VITALS: BP 96/50
[2019-01-01] MEDS: PRESERVISION AREDS2 FORMULA EYE VIT 1 EACH PO SCH (07:52)
[2019-01-01] MEDS: THIAMINE HCL 100 MG TAB PO SCH (07:52)
[2019-01-01] MEDS: MULTIVITAMINS 1 EACH TAB PO SCH (07:52)
[2019-01-01] MEDS: traMADol 50 MG TAB PO PRN (07:52)
[2019-01-01] MEDS: GABAPENTIN 300 MG CAP PO SCH (07:52)
[2019-01-01] MEDS: METOPROLOL TARTRATE 25 MG TAB PO SCH (07:53)
[2019-01-01] MEDS: FOLIC ACID 1 MG TAB PO SCH (07:54)
--- NOTE | 2019-01-01 09:41 | PDIAF ---
- Diagnosis Diagnosis: fall Code Status: Full Code - Medication Management Discharge Medications: electronically signed and located in the Home Medication List. PICC Care - Routine: N/A - Orders Services needed: Home Care, Registered Nurse, Physical Therapy, Occupational Therapy Home Care Face to Face: I certify that this patient was under my care and that I had the required [id number] encounter meeting the encounter requirements on the discharge day. My findings support the fact that the patient is homebound as defined in Home Care Face to Face Continued: CMS Chapter 7 Medicare Benefits Manual 30.1.1 , The condition of the patient is such that there exists a normal inability to leave home and consequently, leaving home would require a considerable and taxing effort. Isolation Type: None Additional Instructions: 1. Return to the emergency room if he develops worsening arm pain or swelling. - Labs/Radiology PT/INR Date: 01/04/19 - Follow Up Care Current Providers and Referrals: Patient,NotPresent [Unknown] - As per Instructions
[2019-01-01] MEDS ORDERED: ENOXAPARIN 150 MG/ML SYR SC SCH ×2 (09:45)
--- NOTE | 2019-01-01 13:01 | ASDISCHSUM ---
Discharge Information Plan Status:Home with Home Health Medically Cleared to Leave:01/01/2019 Discharge Date:01/01/2019 12:27 PM CM D/C Disposition:Home Health Service ADT D/C Disposition:Home Health Service Projected Discharge Date:12/30/2018 11:00 AM Transportation at D/C:Taxicab Discharge Delay Reason: Follow-Up Date:12/30/2018 11:00 AM Discharge Slot: Final Diagnosis:Supratherapeutic INR, fall with hematoma Placement Information Referral Type:*Correction/SNF Referral ID:[id number] Provider Name: Address 1: Phone Number: Address 2: Fax Number: City: Selection Factors: State: Referral Type:*Home Health Care Services Referral ID:[id number] Provider Name:[facility] Address 1:[address] [facility] [address] Phone Number: Address 2: Fax Number: [facility]:[place] Selection Factors: State:[place] Patient Contact Information Contact Name:TIBURCIO Relationship: Address: Home Phone: Work Phone: City: [facility] Phone: [facility]/Zip Code: Email: Financial Information Financial Class:Medicare Primary Plan Desc:MEDICARE INPATIENT Primary Plan Number:[id number] Secondary Plan Desc: Secondary Plan Number: Assessment Information LACE LACE Acuity / Level of Answers: Yes Care: Did the patient have an inpatient admission? Comorbidities - select Answers: Chronic pulmonary disease all that apply History of falls Opioid dependence / Chronic pain Other Notes: PE; AFib # of Emergency department Answers: 1-2 visits in the last 6 months Social determinants Answers: History of substance abuse (ETOH, street drugs, prescription drugs, etc.) Score: 17 Date Signed: 12/27/2018 09:11 AM Electronically Signed By:Aislinn Nieto [facility] CM Progress Note CM Note CM Note Notes: 12/27/2018 Case Management Note Met w/pt to discuss d/c needs. Pt admitted for ETOH w/d. Discussed in rounds today; PA 5. Therapies recommending SNF rehab. Pt brother Luis [phone] in room. Pt sister in law (Luis's ) Noreen can be reached at [phone]. Pt in agreement w/SNF rehab. Previous stay at [facility]. Faxed referral via [employer] CAGE completed. Resources for Medicare treatment options provided. Pt has achieved sobriety with AA several times; prefers different approach. Recommended individual counseling through [facility]. PCP is Dr. Rahman with [facility]. Case Management d/c poc: [facility] pending acceptance. Case Management to follow. Date Signed: 12/27/2018 04:53 PM Electronically Signed By:Kayy Arellano RN CAGE Questionnaire CAGE Do you feel you ought to Answers: Yes cut down on your drinking or drug use? Do people annoy you by Answers: No criticizing your drinking or drug use? Do you feel guilty about Answers: Yes your drinking or drug use? Do you drink or use drugs Answers: No first thing in the morning ([employer])? Additional Comments a fifth to a pint of vodka per day. Provided resources. Declined AA; prefers one on one counseling. Date Signed: 12/27/2018 04:53 PM Electronically Signed By:Kayy Arellano RN [facility] CM Progress Note CM Note CM Note Notes: 12/28/2018 Case Management Note Notified from [facility] that pt is in copay days with 55 days remaining. Pt will pay $170.50 per day with 14 days upfront. Discussed with pt. Pt agreeable. Discussed in rounds today; anticipating d/c on . Case Management d/c poc: [facility] SNF rehab Case Management to follow. Date Signed: 12/28/2018 12:43 PM Electronically Signed By:Kayy Arellano RN [facility] BORA Progress Note CM Note CM Note Notes: Met with pt to discuss dc poc. He now states he does not think he can pay the $170.00/day (per [facility], he must pay 14 days up front). Pt lives alone and has no one to help him with his car. Pt states he lives on the ground floor apt and does not have stairs, as BORA previously thought. Pt is concerned for his car, he is having it towed to [facility] on Thursday and is concerned if he does not pick it up. Pt gave CM permission to talk to car dealership to let them know pt's predicament. Also talked to pt about [facility] program, may be a good candidate. He is agreeable to learning more. CM called [facility] ([phone]) and spoke with Shana. Pt's car has an appointment on Thursday at 11:45, his car will be on [employer] team (silver team) since his car has few miles, they are going to replace the battery. BORA let Shana know that pt may not be able to get car for at least a week or so. Shana made made notes for the team and assures that it will not be a problem but to keep in touch with them to let them know when he may be able to pick it up. BORA spoke with Phuong at [facility] who will come today around noon to meet with pt, to discuss program. And last but not least, BORA called Maureen at [facility] to find out if they could be flexible with payment but they cannot. Spoke w/Ever at [facility], they can accept for HC if pt dcs home. PCP is Jeanna Rahman DC Plan: Homecare/ [facility] (RN/PT/OT/SW) Date Signed: 12/31/2018 12:02 PM Electronically Signed By:Vickie Roberts RN Case Management Discharge Plan Note Case Management Discharge Discharge Order Complete? Answers: Yes Patient to Obtain Answers: via MAP Medications Transportation Arranged Answers: Taxi - Self Pay Transport will Pick (Date 01/01/2019 12:00 AM & Time) Faxed Final Orders Answers: Yes Agency/Facility Transfer Answers: Yes Report Printed & Faxed to Receiving Agency Discharge Comments Notes: BORA spoke with pt in the room. Pt to discharge home with [facility] RN/PT/OT. Pt's car was towed for repairs, so pt arranged for [employer] to pick him up on D/C. Pt preferred to D/C to a SNF, but was unable to pay co-pay, so CM arranged to MAP two doses of Lovenox so pt didn't have to stop at [facility] pharmacy on the way home given his weakness, lack of walker and lack of transportation. Pt aware that a fee of $46 for the two syringes of Lovenox would be charged to his hospital bill and he was agreeable to that. RN provided pt with a sandwich for dinner in light of his lack of transportation. Pt declined [facility] since it would likely not start until Thursday and he would have his car by then. [facility] notified of pt's discharge. RN given number for RN report. No further CM needs noted at this time. Date Signed: 01/01/2019 12:59 PM Electronically Signed By:Gilma Hernandez. RN Intervention Information
--- NOTE | 2019-01-01 14:10 | GDS ---
[f rep st] DISCHARGE SUMMARY DISCHARGE DIAGNOSES: 1. Fall. 2. Right arm hematoma. 3. Acute blood loss anemia. 4. Gait instability. 5. Alcohol abuse. 6. Supratherapeutic INR. 7. Atrial fibrillation. 8. History of antithrombin 3 deficiency. STUDIES AND PROCEDURES: 1. CT of the head. 2. Humerus x-ray. 3. CT of the chest. CONSULTATIONS: Trauma. PHYSICAL EXAM: GENERAL: The patient is alert. VITAL SIGNS: Afebrile at 36.5, pulse is 71, respira tory rate is 26, blood pressure is 96/50, saturating 92% on room air. I have seen and evaluated the patient on the day of discharge. HOSPITAL COURSE: The patient is a 63-year-old male who [facility]. He was evaluated and diagnosed with: 1. Fall. This is in the setting of multiple medical issues. He did receive physical therapy and oc cupational therapy evaluation during this hospitalization. They recommended fpc facility ; however, the patient refused secondary to financial concerns. He will get home health care at home after disposition. 2. Right arm hematoma. This occurred during the patient's fall. This is stable at this time. 3. Acute blood loss anemia. This is in the setting of a significant right arm hematoma. His blood count has been stable. 4. Gait instability. Physical Therapy and Occupational Therapy evaluated the patient. 5. Alcohol abuse. Mr. Bradshaw has been sober and intermittently drinks over the last several decade s. He has had a constant struggle with alcohol abuse. 6. Supratherapeutic anticoagulation. This is in the setting of alcohol consumption and Coumadin. H is Coumadin was held during this hospitalization. He was placed on a heparin drip. It has now been reinitiated at the time of disposition as well as subcutaneous Lovenox daily. He has administered Lo venox in the past and feels comfortable with this regimen. He will follow up in the outpatient [facility] with Dr. Jeanna Rahman, as well as home RN and will manage his INR. 7. History of atrial fibrillation. This is stable. 8. History of antithrombin 3 deficiency. He requires continued Coumadin. DISPOSITION: The patient will be discharged home with home health care, again. senior living faci lity has been recommended; however, the patient refuses at the time of disposition. DISCHARGE MEDICATIONS: Please refer to EMR form. I have provided a prescription for Lovenox 150 mg daily. I have not discontinued the patient's other previously prescribed home medications to the bes t of my knowledge. He has also received alcohol counseling. TIME SPENT WITH PATIENT: I spent greater than 35 minutes in the care, coordination, and management o f this patient's disposition. /[id number]/MODL
--- NOTE | 2019-01-03 18:52 | CPEKG ---
Test Reason : OPEN Blood Pressure : / mmHG Vent. Rate : 063 BPM Atrial Rate : 063 BPM P-R Int : 198 ms QRS Dur : 074 ms QT Int : 418 ms P-R-T Axes : 049 -13 018 degrees QTc Int : 428 ms Sinus rhythm Low voltage, extremity and precordial leads Confirmed by Luis Fernando Gutierrez ([id number]) on 01/03/2019 6:51:12 PM Referred By: Luis Fernando Gutierrez Confirmed By:Luis Fernando Gutierrez
== END 2019-01-01 12:27 | disposition home health service (06) | DRG 605 ==
LOC: EDBD → EDUNIT# → F2W 12-26 07:20 → OBSVTOIN 12-26 10:01 → F3E 12-28 21:30
PROVIDERS: ADMIT Student in an Organized Health Care Education/Training Program; ATTEND Student in an Organized Health Care Education/Training Program
DX: S40.021A Contusion of right upper arm, initial encounter (principal); D62 Acute posthemorrhagic anemia; D68.59 Other primary thrombophilia; W19.XXXA Unspecified fall, initial encounter; E86.9 Volume depletion, unspecified; R26.9 Unspecified abnormalities of gait and mobility; F10.129 Alcohol abuse with intoxication, unspecified; Y90.6 Blood alcohol level of 120-199 mg/100 ml; I48.91 Unspecified atrial fibrillation; Z72.0 Tobacco use; Z86.711 Personal history of pulmonary embolism
CPT/HCPCS: 85520-90; 97116-GP; 97161-GP; 97166-GO; 97530-GO; 97530-GP; 97535-GO; G0480; J1644; J1650; J2060; J3411; J3430